=== PATIENT | female | born 1940 | race Caucasian/White ===

== ENCOUNTER 2021-06-16 13:52 | Emergency (ER) | payer MEDICARE, OTHER, SELFPAY ==
--- NOTE | 2021-06-16 14:40 | ECG_ITS ---
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 Measurements Intervals [place] Rate: 69 P: 52 OK: 166 QRS: 21 QRSD: 106 T: 29 QT: 444 QTc: 477 Interpretive Statements SINUS RHYTHM POSSIBLE ANTERIOR MYOCARDIAL INFARCTION , OF INDETERMINATE AGE [30 ms Q WAVE IN V3/V4, OR R < 0.2 mV IN V4] No previous ECG available for comparison Electronically Signed On 06-20-2021 13:07:54 CDT by Babak Dominguez M.D. [id number]
[2021-06-16 14:55] VITALS: BP 154/79; PULSE 73; RESP 18; TEMP 36.9; O2SAT 100; BMI 29.0
[2021-06-16 23:39] LABS: Basophils # 0.1 10^3/uL (0.0-0.1); Basophils % 0.8 %; Eosinophils # 1.9 10^3/uL (0.0-0.8); Eosinophils % 14.2 %; Hematocrit 42.1 % (37.0-47.0); Hemoglobin 13.9 g/dL (11.5-15.3); Lymphocytes # 3.9 10^3/uL (0.8-4.8); Lymphocytes % 29.8 %; Mean Corpuscular Volume 90.9 fl (81-99); Mean Platelet Volume 8.7 fL (7.4-10.4); Monocytes % 7.6 %; Neutrophils # 6.17 10^3/uL (1.8-7.7); Neutrophils % 47.3 %; Nucleated Red Blood Cells % 0 %; Platelet Count 331 10^3/cmm (130-400); Red Blood Count 4.63 10^6/uL (4.1-5.3)
[2021-06-17 00:03] LABS: Anion Gap 17.3 (5-19); Blood Urea Nitrogen 16 mg/dL (8-23); Calcium 9.6 mg/dL (8.5-10.5); Carbon Dioxide 27 mmol/L (22-29); Chloride 94 mmol/L (98-107); Glucose 81 mg/dL (65-115); Osmolality Calculated 280 mOsm/kg (285-295); Potassium 3.3 mmol/L (3.5-5.1); Sodium 135 mmol/L (136-145)
--- NOTE | 2021-06-17 00:42 | ECG_ITS ---
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 Measurements Intervals [place] Rate: 67 P: 7 VA: 152 QRS: 22 QRSD: 105 T: 29 QT: 451 QTc: 479 Interpretive Statements SINUS RHYTHM PROBABLE INFERIOR MYOCARDIAL INFARCTION , PROBABLY OLD [35 ms Q WAVE IN II/aVF] No previous ECG available for comparison Electronically Signed On 06-17-2021 17:09:09 CDT by Cassius Ventura M.D. [id number]
--- NOTE | 2021-06-17 00:42 | CTR_ITS ---
PROCEDURE INFORMATION: Exam: CT Head Without Contrast Exam date and time: 06/17/2021 12:42 AM Age: 80 years old Clinical indication: Dizziness; Additional info: Vertigo TECHNIQUE: Imaging protocol: Computed tomography of the head without contrast. Radiation optimization: All CT scans at this facility use at least one of these dose optimization techniques: automated exposure control; mA and/or kV adjustment per patient size (includes targeted exams where dose is matched to clinical indication); or iterative reconstruction. COMPARISON: No relevant prior studies available. RADIATION DOSE METRICS: Total DLP (mGy-cm): 789.97 FINDINGS: Brain: No acute intracranial hemorrhage or mass effect. There is decreased attenuation in the periventricular white matter, likely from microvascular disease. No definite acute infarct by CT. MRI could be more sensitive/specific for detection, as clinically directed. Cerebral ventricles: Ventricle size is normal for age. Paranasal sinuses: Prominent fluid/opacity in the sphenoid sinus. This could represent acute sinusitis, please correlate clinically. Mild mucosal thickening in the ethmoid sinuses. Included paranasal sinuses otherwise appear essentially clear. Mastoid air cells: No significant acute finding. Vasculature: Vascular calcifications in the internal carotid arteries. Bones/joints: No definite acute skull fracture. CT/CT head wo con* [id number] IMPRESSION: 1. No acute intracranial hemorrhage or mass effect. 2. Changes of microvascular disease. 3. No definite acute infarct by CT, see above. 4. Paranasal sinus findings as discussed above. 5. Other findings discussed above. Radiation Dose CTDIVOL = (mGy): DLP = 789.97 (mGy-cm)
[2021-06-17] MEDS: meclizine 25 mg tablet 50 MG PO (01:27)
[2021-06-17 01:30] VITALS: BP 184/69; PULSE 67; RESP 18; TEMP 36.5; O2SAT 100
--- NOTE | 2021-06-17 01:41 | W.ED.GENADLT ---
HPI - General Adult General: Chief complaint: General Medical Stated complaint: DIZZY, TOO HOT Time Seen by Provider: 06/17/21 00:32 Source: patient Mode of arrival: ambulatory Limitations: no limitations History of Present Illness: HPI narrative: 80-year-old female states she has a long history of vertigo. States that today she was out driving and walking and felt like she got overheated outside had an episode of dizziness and difficulty walking. States this lasted roughly 30 minutes she also felt sick to her stomach. States that the like her vertigo had in the past. She states that since then she is felt much improved over the last 8 to 10 hours. She denies any headache. States she is able to walk now. She denies any chest pain. Associated symptoms: Deny chest pain, dyspnea, nausea, rash or vomiting Review of Systems Const: Denies: fever(s), chills, body aches or change in appetite Eyes: Denies: blurry vision or eye discomfort ENMT: Denies: throat pain or dental pain Card: Denies: chest pain Resp: Denies: dyspnea GI: Denies: abdominal pain, nausea, vomiting or diarrhea : Denies: dysuria Musc: Denies: neck pain or back pain Skin/Breast: Denies: rash Neuro: Reports: difficulty walking and dizziness Psych: Denies: depression Tom/Lymph: Denies: easy bruising All/Imm: Denies: urticaria Physical Exam Const: COMMON NORMALS: no acute distress, patient oriented x3 and healthy appearing HENMT: COMMON NORMALS: normocephalic and atraumatic HEAD & SCALP: normocephalic and atraumatic Eye: COMMON NORMALS: Equal, round and reactive pupils present and EOMs intact bilaterally PUPIL: Yes Equal, round and reactive pupils present Neck/C-Spine: COMMON NORMALS: full ROM and supple Chest: COMMONS NORMALS: normal inspection of the chest and normal palpation of entire chest wall Resp: COMMON NORMALS: normal respiratory effort, No retractions, No use of accessory muscles and clear to auscultation bilaterally AUSCULTATION: clear to auscultation bilaterally Cardio: COMMON NORMALS: regular rate, regular rhythm and No murmurs present (Cardio) RATE: regular rate RHYTHM: regular rhythm GI: COMMON NORMALS: Normal to inspection, nondistended, normoactive bowel sounds present, Soft to palpation, non-tender and no masses PALPATION: Yes Soft to palpation Extremity: COMMON NORMALS: normal to inspection and full ROM Neuro: COMMON NORMALS: patient oriented x3, moves all extremities and no focal motor deficits CRANIAL NERVES: Yes CN normal except as noted COORDINATION/BALANCE: mybigg-zg-gizh test normal and tandem gait normal SPEECH: speech normal GAIT: Yes Normal gait present MOTOR EXAM: 5/5 motor strength present throughout COORDINATION: nihdmb-yu-grlz test normal and tandem gait normal Psych: COMMON NORMALS: mental status grossly normal, Normal thought process present and cooperative THOUGHT PROCESS: Normal thought process present Skin: COMMON NORMALS: no rashes or lesions noted and no wounds GENERAL SKIN EXAM: no rashes or lesions noted Course Vital Signs: Vital signs: Vital Signs Temperature 97.7 F 06/17/21 01:30 Pulse Rate 67 06/17/21 01:30 Respiratory Rate 18 06/17/21 01:30 Blood Pressure 184/69 06/17/21 01:30 Pulse Oximetry 100 06/17/21 01:30 MDM - General Adult MDM Narrative: Medical decision making narrative: Patient presents here with vertigo that is since improved. She had this chronically has no signs of acute stroke. Patient feels improved here and I feel she is stable for discharge. Will place on Antivert. She is to return if worsening and is to follow-up with PCP. Patient understands agrees to plan. Lab Data: Labs: Lab Results 06/16/21 06/16/21 Range/Units 23:21 23:21 WBC 13.0 H (4.0-10.0) 10^3/ uL RBC 4.63 (4.1-5.3) 10^6/u L Hgb 13.9 (11.5-15.3) g/dL Hct 42.1 (37.0-47.0) % MCV 90.9 (81-99) fl MCH 30.0 (28.0-34.0) pg MCHC 33.0 (30.0-36.0) g/dL RDW 13.0 (12.1-15.1) % Plt Count 331 (130-400) 10^3/c mm MPV 8.7 (7.4-10.4) fL Neut % (Auto) 47.3 % Lymph % (Auto) 29.8 % [place] % (Auto) 7.6 % Eos % (Auto) 14.2 % Baso % (Auto) 0.8 % Neut # (Auto) 6.17 (1.8-7.7) 10^3/u L Lymph # (Auto) 3.9 (0.8-4.8) 10^3/u L [place] # (Auto) 1.0 H (0.2-0.9) 10^3/u L Eos # (Auto) 1.9 H (0.0-0.8) 10^3/u L Baso # (Auto) 0.1 (0.0-0.1) 10^3/u L Nucleated RBC % (a uto) 0 % Nucleated RBCs # 0.0 /100WBC Sodium 135 L (136-145) mmol/L Potassium 3.3 L (3.5-5.1) mmol/L Chloride 94 L (98-107) mmol/L Carbon Dioxide 27 (22-29) mmol/L Anion Gap 17.3 (5-19) BUN 16 (8-23) mg/dL Creatinine 0.7 (0.5-0.9) mg/dL GFR Calculation Not Reportable Glucose 81 (65-115) mg/dL Calculated Osmolal ity 280 L (285-295) mOsm/k g Calcium 9.6 (8.5-10.5) mg/dL Imaging Data^: CT Head: Attestation: I personally reviewed and interpreted this imaging study as follows: Radiologist's impression: [address] [address] [address] Scan Report Signed Patient: Irma Lyn Unit #: [id number] : 1940 Age/Sex: 80 / F ADM Date: 06/16/21 Loc: ER Room/Bed: Attending Dr: Ordering Provider/Ordering MD: Merrick Keenan MD Date of Service: 06/17/21 Procedure(s): CT head wo con* [id number] Accession Number(s): [id number] Report Number: [id number] PROCEDURE INFORMATION: Exam: CT Head Without Contrast Exam date and time: 06/17/2021 12:42 AM Age: 80 years old Clinical indication: Dizziness; Additional info: Vertigo TECHNIQUE: Imaging protocol: Computed tomography of the head without contrast. Radiation optimization: All CT scans at this facility use at least one of these dose optimization techniques: automated exposure control; mA and/or kV adjustment per patient size (includes targeted exams where dose is matched to clinical indication); or iterative reconstruction. COMPARISON: No relevant prior studies available. RADIATION DOSE METRICS: Total DLP (mGy-cm): 789.97 FINDINGS: Brain: No acute intracranial hemorrhage or mass effect. There is decreased attenuation in the periventricular white matter, likely from microvascular disease. No definite acute infarct by CT. MRI could be more sensitive/specific for detection, as clinically directed. Cerebral ventricles: Ventricle size is normal for age. Paranasal sinuses: Prominent fluid/opacity in the sphenoid sinus. This could represent acute sinusitis, please correlate clinically. Mild mucosal thickening in the ethmoid sinuses. Included paranasal sinuses otherwise appear essentially clear. Mastoid air cells: No significant acute finding. Vasculature: Vascular calcifications in the internal carotid arteries. Bones/joints: No definite acute skull fracture. CT/CT head wo con* [id number] IMPRESSION: 1. No acute intracranial hemorrhage or mass effect. 2. Changes of microvascular disease. 3. No definite acute infarct by CT, see above. 4. Paranasal sinus findings as discussed above. 5. Other findings discussed above. Radiation Dose CTDIVOL = (mGy): DLP = 789.97 (mGy-cm) Dictated By: Marquez Garcia MD Signed By: Marquez Garcia MD Signed Date/Time: 06/17/21245 DD/ 3 EKG Data^: EKG 1: Attestation: I personally reviewed and interpreted this EKG as follows: EKG interpretation date: 06/17/21 EKG interpretation time: 02:03 Interpretation: nsr hr [address] or twave abonrmalities qrs 105 qtc 467 Computer generated interpretation: Head CT 06/17/21 00:42 IMPRESSION: 1. No acute intracranial hemorrhage or mass effect. 2. Changes of microvascular disease. 3. No definite acute infarct by CT, see above. 4. Paranasal sinus findings as discussed above. 5. Other findings discussed above. Radiation Dose CTDIVOL = (mGy): DLP = 789.97 (mGy-cm) Discharge Plan Discharge Patient Disposition: Home Clinical Impression: Vertigo Condition: Stable Prescriptions: New meclizine 25 mg tablet 25 mg PO TID PRN (Reason: vertigo) Qty: 20 RF: 0 Discharge Orders: Discharge ED (Routine); Ordered 06/17/21 Ordered By: Merrick Keenan Referrals: Kvng Daniel MD [Primary Care Provider] - 1-3 days Discharge Diet: Advance as tolerated Discharge Activity: Resume usual activity Patient Instructions: Vertigo (ED) Coding Level of Care Code ED E Commerce Marketing Analyst for Chg Fwd Exam Comprehensive
== END 2021-06-17 03:36 | disposition home or self-care (01) ==
PROVIDERS: Emergency Medicine; Emergency Provider Emergency Medicine; PCP Family Medicine
DX: R42 Dizziness and giddiness (principal)
CPT/HCPCS: 36415; 70450; 80048; 85025; 93005; 99283; J8597

== ENCOUNTER 2022-09-29 11:20 | Outpatient (RCR) | payer MEDICARE, OTHER, SELFPAY | END 2022-10-14 16:42 | disposition home or self-care (01) | LOC: SPT 11:20 | PROVIDERS: PCP Family Medicine; Visit Provider Family Medicine | DX: M25.511 Pain in right shoulder (principal); R29.6 Repeated falls | CPT/HCPCS: 97110; 97161; 97530 ==

== ENCOUNTER → 2022-12-07 13:49 | Outpatient (BNVA) | payer MEDICARE, OTHER, SELFPAY | PROVIDERS: PCP Family Medicine; Visit Provider Podiatrist Foot & Ankle Surgery | DX: L97.522 Non-pressure chronic ulcer of other part of left foot with fat layer exposed (principal); R60.9 Edema, unspecified | CPT/HCPCS: 99203 ==

== ENCOUNTER → 2022-12-21 15:15 | Outpatient (BNVA) | payer MEDICARE, OTHER, SELFPAY | PROVIDERS: PCP Family Medicine; Visit Provider Podiatrist Foot & Ankle Surgery | DX: L97.522 Non-pressure chronic ulcer of other part of left foot with fat layer exposed (principal); R60.9 Edema, unspecified | CPT/HCPCS: 11042 ==

== ENCOUNTER → 2023-01-04 15:44 | Outpatient (BNVA) | payer MEDICARE, OTHER, SELFPAY | PROVIDERS: PCP Family Medicine; Visit Provider Podiatrist Foot & Ankle Surgery | DX: L97.529 Non-pressure chronic ulcer of other part of left foot with unspecified severity (principal); R60.9 Edema, unspecified | CPT/HCPCS: 99213 ==

== ENCOUNTER → 2023-01-18 15:08 | Outpatient (BNVA) | payer MEDICARE, OTHER, SELFPAY | PROVIDERS: PCP Family Medicine; Visit Provider Podiatrist Foot & Ankle Surgery | DX: L97.522 Non-pressure chronic ulcer of other part of left foot with fat layer exposed (principal); R60.9 Edema, unspecified | CPT/HCPCS: 99213 ==

== ENCOUNTER 2023-01-23 10:00 | Emergency (ER) | payer MEDICARE, OTHER, SELFPAY ==
[2023-01-23 10:18] VITALS: BP 179/64; PULSE 57; RESP 14; TEMP 36.7; O2SAT 98; BMI 27.4
--- NOTE | 2023-01-23 10:35 | W.ED.SKABFB ---
HPI - Skin/Abscess/Foreign Bdy General: Chief complaint: Abdominal Pain Stated complaint: blood coming from belly button Time Seen by Provider: 01/23/23 10:16 Source: patient Mode of arrival: ambulatory Limitations: no limitations History of Present Illness: Patient is a nice 82-year-old female presents to ED today with complaint of drainage from her umbilicus. Patient states she began noticing a small amount of clear drainage yesterday but states that she woke up this morning the drainage was a bit darker and had a blood-tinged to it which made her concerned. She is not having any abdominal pain. No itching to her umbilicus. She denies any recent sores/scabs. Denies previous abdominal incisions to her umbilicus. No masses/bulges. MD complaint: other (drainage from umbilicus) Onset (ago): day(s) Tetanus up to date: yes Severity: mild Relieving factors: none Exacerbating factors: none Context: none Associated symptoms: Reports no associated symptoms; Deny fever(s), nausea or vomiting Treatments prior to arrival: none Review of Systems Const: Denies: fever(s) GI: Denies: abdominal pain, nausea, vomiting or change in bowel habits Skin/Breast: Reports: other (drainage from navel) [facility] ED PFSH: Medical History Hyperlipidemia Hypertension Surgical History No pertinent past surgical history Physical Exam Const: COMMON NORMALS: no acute distress, average body habitus, patient oriented x3, no limitations, alert and well nourished GI: COMMON NORMALS: Normal to inspection, nondistended, normoactive bowel sounds present, Soft to palpation, non-tender, No hepatosplenomegaly present and no masses INSPECTION: Yes normal to inspection AUSCULTATION: Yes normoactive bowel sounds PALPATION: Yes Soft to palpation, No Tenderness to palpation present (GI), No Guarding due to palpation present (GI), No Rigid due to palpation and Yes No hepatosplenomegaly present OTHER: patient's naval is roofed/concealed at the left and right edges by skin folds that are rubbing together creating a mild intertrigo with scant bloody serosanguineous weeping Neuro: COMMON NORMALS: patient oriented x3 SENSORIUM/ORIENTATION: Yes alert Course Vital Signs: Vital signs: Vital Signs Temperature 98.0 F 01/23/23 10:18 Pulse Rate 57 L 01/23/23 10:18 Respiratory Rate 14 01/23/23 10:18 Blood Pressure 179/64 01/23/23 10:18 Pulse Oximetry 98 01/23/23 10:18 Oxygen Delivery Me thod 01/23/23 10:18 MDM - Skin/Abscess/Foreign Bdy Medicial Decision Making Patient has some minor skin irritation from chafing skin edges creating a mild intertrigo. She was encouraged to keep area clean/dry with drying powders and barrier creams. She can follow up with PCP in the next 1-2 weeks if symptoms worsen or fail to improve. Discharge Plan Discharge Patient Disposition: Home Clinical Impression: Intertrigo Condition: Stable Prescriptions: No Action lidocaine-epinephrine (PF) 2 %-1:200,000 solution 3 ml SUBCUT ONCE Qty: 20 0RF enalapril maleate 10 mg tablet 10 mg PO BID alendronate 70 mg tablet PO citalopram 20 mg tablet 10 mg PO DAILY potassium chloride 10 mEq capsule, extended release 10 meq PO DAILY hydrochlorothiazide 50 mg tablet 50 mg PO DAILY celecoxib [Celebrex] 200 mg capsule 200 mg PO DAILY simvastatin 40 mg tablet 40 mg PO DAILY Myrbetriq 50 mg tablet extended release 24 hr 50 mg PO DAILY betamethasone dipropionate 0.05 % cream 1 applic topical BID PRN triamcinolone acetonide 0.1 % ointment 1 applic topical BID Qty: 454 0RF Rx Instructions: Apply to affected area no more than two weeks per month. Not for face. cephalexin 500 mg capsule 500 mg PO TID Qty: 21 0RF mupirocin 2 % ointment 1 applic topical BID Qty: 15 0RF MediHoney (honey) 80 % gel 1 applic topical DAILY Qty: 44 0RF meclizine 25 mg tablet 25 mg PO TID PRN (Reason: vertigo) Qty: 20 0RF Discharge Orders: Discharge ED (Routine); Ordered 01/23/23 Ordered By: Zara Villalobos Referrals: Kvng Daniel MD [Primary Care Provider] - Activity Restrictions/Additional Instructions: Daily cleansing of intertriginous skin with a mild cleanser followed by drying of affected area with a hair spinning machine operator on a cool setting ?Aeration of affected area when feasible ?Daily application of drying powders, such as powders composed of microporous cellulose ?Use of absorbent material or clothing, such as cotton to separate skin in folds ?Application of barrier creams in areas-such as zinc oxide Coding Level of Care Code ED Philosophy Instructor for Terry Posey
== END 2023-01-23 10:48 | disposition home or self-care (01) ==
PROVIDERS: Emergency Provider Physician Assistant; PCP Family Medicine
DX: L30.4 Erythema intertrigo (principal); I10 Essential (primary) hypertension; E78.5 Hyperlipidemia, unspecified
CPT/HCPCS: 99282

== ENCOUNTER → 2023-01-29 14:07 | Outpatient (BNVA) | payer MEDICARE, OTHER, SELFPAY | PROVIDERS: PCP Family Medicine; Visit Provider Podiatrist Foot & Ankle Surgery | DX: L97.522 Non-pressure chronic ulcer of other part of left foot with fat layer exposed (principal); R60.9 Edema, unspecified | CPT/HCPCS: 99213 ==

== ENCOUNTER → 2023-02-05 08:14 | Outpatient (BNVA) | payer MEDICARE, OTHER, SELFPAY | PROVIDERS: PCP Family Medicine; Visit Provider Podiatrist Foot & Ankle Surgery | DX: L97.522 Non-pressure chronic ulcer of other part of left foot with fat layer exposed (principal); R60.9 Edema, unspecified | CPT/HCPCS: 11042 ==

== ENCOUNTER → 2023-02-19 08:47 | Outpatient (BNVA) | payer MEDICARE, OTHER, SELFPAY | PROVIDERS: PCP Family Medicine; Visit Provider Podiatrist Foot & Ankle Surgery | DX: L97.522 Non-pressure chronic ulcer of other part of left foot with fat layer exposed (principal); R60.9 Edema, unspecified | CPT/HCPCS: 99213 ==

== ENCOUNTER → 2023-03-03 11:07 | Outpatient (BNVA) | payer MEDICARE, OTHER, SELFPAY | PROVIDERS: PCP Family Medicine; Visit Provider Podiatrist Foot & Ankle Surgery | DX: L97.522 Non-pressure chronic ulcer of other part of left foot with fat layer exposed (principal); R60.9 Edema, unspecified | CPT/HCPCS: 99213 ==

== ENCOUNTER → 2023-03-24 09:56 | Outpatient (BNVA) | payer MEDICARE, OTHER, SELFPAY | PROVIDERS: PCP Family Medicine; Visit Provider Podiatrist Foot & Ankle Surgery | DX: L89.892 Pressure ulcer of other site, stage 2 (principal); M20.12 Hallux valgus (acquired), left foot | CPT/HCPCS: 99213 ==

== ENCOUNTER → 2023-04-07 15:30 | Outpatient (BNVA) | payer MEDICARE, OTHER, SELFPAY | PROVIDERS: PCP Family Medicine; Visit Provider Dermatology | DX: L30.9 Dermatitis, unspecified (principal); L82.1 Other seborrheic keratosis; L81.4 Other melanin hyperpigmentation; Z85.828 Personal history of other malignant neoplasm of skin | CPT/HCPCS: 99214 ==

== ENCOUNTER → 2023-04-15 10:09 | Outpatient (BNVA) | payer MEDICARE, OTHER, SELFPAY | PROVIDERS: PCP Family Medicine; Visit Provider Podiatrist Foot & Ankle Surgery | DX: M20.12 Hallux valgus (acquired), left foot (principal); L97.522 Non-pressure chronic ulcer of other part of left foot with fat layer exposed | CPT/HCPCS: 99213 ==

== ENCOUNTER → 2023-05-05 09:23 | Outpatient (BNVA) | payer MEDICARE, OTHER, SELFPAY | PROVIDERS: PCP Family Medicine; Visit Provider Dermatology | DX: L30.8 Other specified dermatitis (principal); Z85.828 Personal history of other malignant neoplasm of skin | CPT/HCPCS: 99214 ==

== ENCOUNTER → 2023-06-15 08:58 | Outpatient (BNVA) | payer MEDICARE, OTHER, SELFPAY | PROVIDERS: PCP Family Medicine; Visit Provider Podiatrist Foot & Ankle Surgery | DX: L89.899 Pressure ulcer of other site, unspecified stage; M20.12 Hallux valgus (acquired), left foot | CPT/HCPCS: 99213 ==

== ENCOUNTER 2023-06-18 03:13 | Emergency (ER) | payer MEDICARE, OTHER, MEDICAID, SELFPAY ==
[2023-06-18] VITALS (10 sets, daily range): BP systolic 141–199; BP diastolic 47–98; PULSE 61–81; RESP 16–18; TEMP 36.9; O2SAT 93–99; BMI 26.5
--- NOTE | 2023-06-18 03:24 | ED_ITS ---
Documented by User: Mendoza Jacobs MD 06/18/23 03:28 HPI - Abdominal Pain General: Chief Complaint: Abdominal Pain Stated Complaint: Constipated\Vomiting Time Seen by Provider: 06/18/23 03:16 Source: patient Mode of arrival: ambulatory Limitations: no limitations History of Present Illness: 82-year-old female states she has been having abdominal pain over the last 2 days states she has had nausea and vomiting as well states she has not had a bowel movement in 4 to 5 days. She denies any fevers she rates her pain a 5 out of 10 currently denies any worsening proving factors. Associated Symptoms: Reports constipation, nausea and vomiting; Denies chills, diarrhea, dysuria and fever(s) Review of Systems Const: Denies: fever(s), chills, body aches or change in appetite ENMT: Denies: throat pain or dental pain Card: Denies: chest pain Resp: Denies: dyspnea GI: Reports: abdominal pain, nausea, vomiting and constipation; Denies: diarrhea : Denies: dysuria Musc: Denies: neck pain or back pain Skin/Breast: Denies: rash Neuro: Denies: headache(s) PFS ED PFSH: Medical History Hyperlipidemia Hypertension Surgical History No pertinent past surgical history Physical Exam Const: COMMON NORMALS: no acute distress, patient oriented x3 and healthy appearing HENMT: COMMON NORMALS: normocephalic and atraumatic HEAD & SCALP: normocephalic and atraumatic Neck/C-Spine: COMMON NORMALS: full ROM and supple Chest: COMMONS NORMALS: normal inspection of the chest and normal palpation of entire chest wall Resp: COMMON NORMALS: normal respiratory effort, No retractions, No use of accessory muscles and clear to auscultation bilaterally AUSCULTATION: clear to auscultation bilaterally Cardio: COMMON NORMALS: regular rate, regular rhythm and No murmurs present (Cardio) RATE: regular rate RHYTHM: regular rhythm GI: COMMON NORMALS: no masses OTHER: diffuse mild tenderness Extremity: COMMON NORMALS: normal to inspection and full ROM Neuro: COMMON NORMALS: patient oriented x3, moves all extremities and no focal motor deficits Psych: COMMON NORMALS: mental status grossly normal, Normal thought process present and cooperative THOUGHT PROCESS: Normal thought process present Skin: COMMON NORMALS: no rashes or lesions noted and no wounds GENERAL SKIN EXAM: no rashes or lesions noted Course Vital Signs: Vital signs: Vital Signs Temperature 98.5 F 06/18/23 03:17 Pulse Rate 61 06/18/23 12:35 Respiratory Rate 18 06/18/23 12:35 Blood Pressure 142/47 06/18/23 12:35 Pulse Oximetry 97 06/18/23 12:35 Oxygen Delivery Me thod Room Air 06/18/23 12:35 MDM - Abdominal Pain Lab Data 06/18/23 03:31 06/18/23 03:31 Labs/Radiology: Radiology Impressions Abdomen/Pelvis CT 06/18/23 04:31 IMPRESSION: 1. High-grade small-bowel obstruction. Transition point in the left lower quadrant. 2. At the transition point in the small bowel there is mesenteric architectural distortion suggesting internal hernia. 3. The sigmoid apex may also be involved in the internal hernia. There is focal decompression of the closely apposed portions of sigmoid colon proximal and distal to the sigmoid apex adjacent to the small bowel transition point. There is no high-grade colonic obstruction. 4. Large ventral hernia containing portions of dilated and nondilated small bowel, and most of the transverse colon. The small bowel in the hernia is incompletely imaged. Small bowel transition point is intra-abdominal. 5. Incidental findings above. ADDENDUM: 06/18/23 4568 THIS REPORT CONTAINS FINDINGS THAT MAY BE CRITICAL TO PATIENT CARE. The findings were verbally communicated via telephone conference with MENDOZA JACOBS at 5:30 AM CDT on 06/18/2023. The findings were acknowledged and understood. ADDENDUM: 06/18/23 0700 An additional set of axial, coronal and sagittal images were obtained through the distal aspect of ventral hernia site. No new findings. Laboratory Results WBC 10.68 10^3/uL (3.29-11.43) 06/18/23 03:31 RBC 4.51 10^6/uL (3.85-5.65) 06/18/23 03:31 Hgb 13.70 g/dL (11.27-16.99) 06/18/23 03:31 Hct 40.7 % (36-47) 06/18/23 03:31 MCV 90.2 fl (85-98) 06/18/23 03:31 MCH 30.4 pg (27-33) 06/18/23 03:31 MCHC 33.7 g/dL (30-55) 06/18/23 03:31 RDW 13.5 % (12.1-15.1) 06/18/23 03:31 Plt Count 306 10^3/cmm (157-399) 06/18/23 03:31 MPV 8.7 fL (7.4-10.4) 06/18/23 03:31 Neut % (Auto) 74.2 % 06/18/23 03:31 Lymph % (Auto) 17.0 % 06/18/23 03:31 Milam % (Auto) 5.4 % 06/18/23 03:31 Eos % (Auto) 2.5 % 06/18/23 03:31 Baso % (Auto) 0.7 % 06/18/23 03:31 Neut # (Auto) 7.91 10^3/uL (1.8-7.7) H 06/18/23 03:31 Lymph # (Auto) 1.8 10^3/uL (0.8-4.8) 06/18/23 03:31 Milam # (Auto) 0.6 10^3/uL (0.2-0.9) 06/18/23 03:31 Eos # (Auto) 0.3 10^3/uL (0.0-0.8) 06/18/23 03:31 Baso # (Auto) 0.1 10^3/uL (0.0-0.1) 06/18/23 03:31 Nucleated RBC % (auto) 0 % 06/18/23 03:31 Nucleated RBCs # 0.0 /100WBC 06/18/23 03:31 Sodium 138 mmol/L (136-145) 06/18/23 03:31 Potassium 3.8 mmol/L (3.5-5.1) 06/18/23 03:31 Chloride 98 mmol/L (98-107) 06/18/23 03:31 Carbon Dioxide 24 mmol/L (22-29) 06/18/23 03:31 Anion Gap 19.8 (5-19) H 06/18/23 03:31 BUN 23 mg/dL (8-23) 06/18/23 03:31 Creatinine 1.0 mg/dL (0.5-0.9) H 06/18/23 03:31 GFR Calculation Not Reportable 06/18/23 03:31 Glucose 131 mg/dL (65-115) H 06/18/23 03:31 Calculated Osmolality 291 mOsm/kg (285-295) 06/18/23 03:31 Lactic Acid 2.0 mmol/L (0.5-2.2) 06/18/23 03:30 Calcium 10.0 mg/dL (8.5-10.5) 06/18/23 03:31 Total Bilirubin 0.9 mg/dL (0.15-1.2) 06/18/23 03:31 AST 23 U/L (0-32) 06/18/23 03:31 ALT 11 U/L (0-33) 06/18/23 03:31 Alkaline Phosphatase 64 U/L (35-105) 06/18/23 03:31 Total Protein 7.8 g/dL (6.6-8.7) 06/18/23 03:31 Albumin 4.6 g/dL (3.5-5.2) 06/18/23 03:31 Globulin 3.2 g/dL (1.3-4.6) 06/18/23 03:31 Lipase 34 U/L (13-60) 06/18/23 03:31 Urine Color Yellow (Yellow) 06/18/23 03:53 Urine Appearance Clear (CLEAR) 06/18/23 03:53 Urine pH 7 (5-7) 06/18/23 03:53 Ur Specific Strawn 1.010 (1.005-1.030) 06/18/23 03:53 Urine Protein 1+ (Negative) H 06/18/23 03:53 Urine Glucose (UA) Norm (Normal) 06/18/23 03:53 Urine Ketones 1+ (Negative) H 06/18/23 03:53 Urine Blood Neg (Negative) 06/18/23 03:53 Urine Nitrate Negative (Negative) 06/18/23 03:53 Urine Bilirubin Neg (Negative) 06/18/23 03:53 Urine Urobilinogen 1 mg/dL (Negative) H 06/18/23 03:53 Ur Leukocyte Esterase 2+ (Negative) H 06/18/23 03:53 Urine RBC None /hpf (0-2) 06/18/23 03:53 Urine WBC 5-10 /hpf (0-5) H 06/18/23 03:53 Ur Squamous Epith Cells 0-4 /hpf (0-5) H 06/18/23 03:53 Amorphous Sediment Not Reportable 06/18/23 03:53 Urine Bacteria 1+ /hpf (NONE) H 06/18/23 03:53 Urine Mucus 2+ /hpf 06/18/23 03:53 Discharge Plan Discharge Patient Disposition: Xfer Short-Term Hosp Clinical Impression: Small bowel obstruction, Ventral hernia Condition: Stable Prescriptions: No Action enalapril maleate 10 mg tablet 10 mg PO BID alendronate 70 mg tablet 70 mg PO Q7D citalopram 20 mg tablet 10 mg PO DAILY potassium chloride 10 mEq capsule, extended release 10 meq PO DAILY hydrochlorothiazide 50 mg tablet 50 mg PO DAILY celecoxib [Celebrex] 200 mg capsule 200 mg PO DAILY simvastatin 40 mg tablet 40 mg PO DAILY Myrbetriq 50 mg tablet extended release 24 hr 50 mg PO DAILY betamethasone dipropionate 0.05 % cream 1 applic topical BID PRN (Reason: Rash) triamcinolone acetonide 0.1 % ointment 1 applic topical BID Qty: 454 0RF Rx Instructions: Apply to affected area no more than two weeks per month. Not for face. (DME) Toe Alignment Splint See Rx Instructions .Route .MEDSUPPLY Qty: 1 0RF Rx Instructions: As directed mupirocin 2 % ointment 1 applic topical BID Qty: 15 0RF MediHoney (honey) 80 % gel 1 applic topical DAILY Qty: 44 0RF meclizine 25 mg tablet 25 mg PO TID PRN (Reason: vertigo) Qty: 20 0RF Referrals: Kvng Daniel MD [Primary Care Provider] - Sign Out Sign Out Data: Patient Sign Out occurred on 06/18/23 at 05:59. Patient's care was discussed, and care was transferred from to Husam Otto DO. Coding Level of Care Code ED In School Suspension Coordinator for [facility] Documented by User: Husam Otto DO 06/18/23 16:25 HPI - Abdominal Pain General: Chief Complaint: Abdominal Pain Stated Complaint: Constipated\Vomiting Time Seen by Provider: 06/18/23 03:16 PFSH ED PFSH: Medical History Hyperlipidemia Hypertension Surgical History No pertinent past surgical history Course Vital Signs: Vital signs: Vital Signs Temperature 98.5 F 06/18/23 03:17 Pulse Rate 61 06/18/23 12:35 Respiratory Rate 18 06/18/23 12:35 Blood Pressure 142/47 06/18/23 12:35 Pulse Oximetry 97 06/18/23 12:35 Oxygen Delivery Me thod Room Air 06/18/23 12:35 MDM - Abdominal Pain Medical Decision Making Care assumed at change of shift. We asked Dr. Contreras to see the patient he seen the patient and documented a consultation. He requested to transfer the patient he feels that closing the abdominal cavity was a sizable ventral wall defect with he would not be able to do and we do not have the proper equipment in the OR to manage this. We contacted [facility] for the patient was seen several ye ars ago for the colon resection they will accept on transfer. NG was placed. Medical Records I reviewed the patient's medical records. Lab Data I reviewed the patient's lab results. 06/18/23 03:31 06/18/23 03:31 Labs/Radiology: Radiology Impressions Abdomen/Pelvis CT 06/18/23 04:31 IMPRESSION: 1. High-grade small-bowel obstruction. Transition point in the left lower quadrant. 2. At the transition point in the small bowel there is mesenteric architectural distortion suggesting internal hernia. 3. The sigmoid apex may also be involved in the internal hernia. There is focal decompression of the closely apposed portions of sigmoid colon proximal and distal to the sigmoid apex adjacent to the small bowel transition point. There is no high-grade colonic obstruction. 4. Large ventral hernia containing portions of dilated and nondilated small bowel, and most of the transverse colon. The small bowel in the hernia is incompletely imaged. Small bowel transition point is intra-abdominal. 5. Incidental findings above. ADDENDUM: 06/18/23 0592 THIS REPORT CONTAINS FINDINGS THAT MAY BE CRITICAL TO PATIENT CARE. The findings were verbally communicated via telephone conference with MENDOZA JACOBS at 5:30 AM CDT on 06/18/2023. The findings were acknowledged and understood. ADDENDUM: 06/18/23 0700 An additional set of axial, coronal and sagittal images were obtained through the distal aspect of ventral hernia site. No new findings. Laboratory Results WBC 10.68 10^3/uL (3.29-11.43) 06/18/23 03:31 RBC 4.51 10^6/uL (3.85-5.65) 06/18/23 03:31 Hgb 13.70 g/dL (11.27-16.99) 06/18/23 03:31 Hct 40.7 % (36-47) 06/18/23 03:31 MCV 90.2 fl (85-98) 06/18/23 03:31 MCH 30.4 pg (27-33) 06/18/23 03:31 MCHC 33.7 g/dL (30-55) 06/18/23 03:31 RDW 13.5 % (12.1-15.1) 06/18/23 03:31 Plt Count 306 10^3/cmm (157-399) 06/18/23 03:31 MPV 8.7 fL (7.4-10.4) 06/18/23 03:31 Neut % (Auto) 74.2 % 06/18/23 03:31 Lymph % (Auto) 17.0 % 06/18/23 03:31 Milam % (Auto) 5.4 % 06/18/23 03:31 Eos % (Auto) 2.5 % 06/18/23 03:31 Baso % (Auto) 0.7 % 06/18/23 03:31 Neut # (Auto) 7.91 10^3/uL (1.8-7.7) H 06/18/23 03:31 Lymph # (Auto) 1.8 10^3/uL (0.8-4.8) 06/18/23 03:31 Milam # (Auto) 0.6 10^3/uL (0.2-0.9) 06/18/23 03:31 Eos # (Auto) 0.3 10^3/uL (0.0-0.8) 06/18/23 03:31 Baso # (Auto) 0.1 10^3/uL (0.0-0.1) 06/18/23 03:31 Nucleated RBC % (auto) 0 % 06/18/23 03:31 Nucleated RBCs # 0.0 /100WBC 06/18/23 03:31 Sodium 138 mmol/L (136-145) 06/18/23 03:31 Potassium 3.8 mmol/L (3.5-5.1) 06/18/23 03:31 Chloride 98 mmol/L (98-107) 06/18/23 03:31 Carbon Dioxide 24 mmol/L (22-29) 06/18/23 03:31 Anion Gap 19.8 (5-19) H 06/18/23 03:31 BUN 23 mg/dL (8-23) 06/18/23 03:31 Creatinine 1.0 mg/dL (0.5-0.9) H 06/18/23 03:31 GFR Calculation Not Reportable 06/18/23 03:31 Glucose 131 mg/dL (65-115) H 06/18/23 03:31 Calculated Osmolality 291 mOsm/kg (285-295) 06/18/23 03:31 Lactic Acid 2.0 mmol/L (0.5-2.2) 06/18/23 03:30 Calcium 10.0 mg/dL (8.5-10.5) 06/18/23 03:31 Total Bilirubin 0.9 mg/dL (0.15-1.2) 06/18/23 03:31 AST 23 U/L (0-32) 06/18/23 03:31 ALT 11 U/L (0-33) 06/18/23 03:31 Alkaline Phosphatase 64 U/L (35-105) 06/18/23 03:31 Total Protein 7.8 g/dL (6.6-8.7) 06/18/23 03:31 Albumin 4.6 g/dL (3.5-5.2) 06/18/23 03:31 Globulin 3.2 g/dL (1.3-4.6) 06/18/23 03:31 Lipase 34 U/L (13-60) 06/18/23 03:31 Urine Color Yellow (Yellow) 06/18/23 03:53 Urine Appearance Clear (CLEAR) 06/18/23 03:53 Urine pH 7 (5-7) 06/18/23 03:53 Ur Specific Strawn 1.010 (1.005-1.030) 06/18/23 03:53 Urine Protein 1+ (Negative) H 06/18/23 03:53 Urine Glucose (UA) Norm (Normal) 06/18/23 03:53 Urine Ketones 1+ (Negative) H 06/18/23 03:53 Urine Blood Neg (Negative) 06/18/23 03:53 Urine Nitrate Negative (Negative) 06/18/23 03:53 Urine Bilirubin Neg (Negative) 06/18/23 03:53 Urine Urobilinogen 1 mg/dL (Negative) H 06/18/23 03:53 Ur Leukocyte Esterase 2+ (Negative) H 06/18/23 03:53 Urine RBC None /hpf (0-2) 06/18/23 03:53 Urine WBC 5-10 /hpf (0-5) H 06/18/23 03:53 Ur Squamous Epith Cells 0-4 /hpf (0-5) H 06/18/23 03:53 Amorphous Sediment Not Reportable 06/18/23 03:53 Urine Bacteria 1+ /hpf (NONE) H 06/18/23 03:53 Urine Mucus 2+ /hpf 06/18/23 03:53 Discharge Plan Discharge Patient Disposition: Xfer Short-Term Hosp Clinical Impression: Small bowel obstruction, Ventral hernia Condition: Stable Prescriptions: No Action enalapril maleate 10 mg tablet 10 mg PO BID alendronate 70 mg tablet 70 mg PO Q7D citalopram 20 mg tablet 10 mg PO DAILY potassium chloride 10 mEq capsule, extended release 10 meq PO DAILY hydrochlorothiazide 50 mg tablet 50 mg PO DAILY celecoxib [Celebrex] 200 mg capsule 200 mg PO DAILY simvastatin 40 mg tablet 40 mg PO DAILY Myrbetriq 50 mg tablet extended release 24 hr 50 mg PO DAILY betamethasone dipropionate 0.05 % cream 1 applic topical BID PRN (Reason: Rash) triamcinolone acetonide 0.1 % ointment 1 applic topical BID Qty: 454 0RF Rx Instructions: Apply to affected area no more than two weeks per month. Not for face. (DME) Toe Alignment Splint See Rx Instructions .Route .MEDSUPPLY Qty: 1 0RF Rx Instructions: As directed mupirocin 2 % ointment 1 applic topical BID Qty: 15 0RF MediHoney (honey) 80 % gel 1 applic topical DAILY Qty: 44 0RF meclizine 25 mg tablet 25 mg PO TID PRN (Reason: vertigo) Qty: 20 0RF Referrals: Kvng Daniel MD [Primary Care Provider] - Sign Out Sign Out Data: Patient Sign Out occurred on 06/18/23 at 05:59. Patient's care was discussed, and care was transferred from to Husam Otto DO. Coding Level of Care Code ED In School Suspension Coordinator for Terry Posey
[2023-06-18 03:35] LABS: Basophils # 0.1 10^3/uL (0.0-0.1); Basophils % 0.7 %; Eosinophils # 0.3 10^3/uL (0.0-0.8); Eosinophils % 2.5 %; Hematocrit 40.7 % (36-47); Lymphocytes # 1.8 10^3/uL (0.8-4.8); Mean Corpuscular HGB Conc 33.7 g/dL (30-55); Mean Corpuscular Hemoglobin 30.4 pg (27-33); Mean Corpuscular Volume 90.2 fl (85-98); Mean Platelet Volume 8.7 fL (7.4-10.4); Monocytes # 0.6 10^3/uL (0.2-0.9); Monocytes % 5.4 %; Neutrophils # 7.91 10^3/uL (1.8-7.7); Neutrophils % 74.2 %; Nucleated Red Blood Cells % 0 %; Platelet Count 306 10^3/cmm (157-399); Red Blood Count 4.51 10^6/uL (3.85-5.65); Red Cell Distribution Width 13.5 % (12.1-15.1); White Blood Count 10.68 10^3/uL (3.29-11.43)
[2023-06-18] MEDS: ondansetron 2 mg/ML SDV 2 mL 4 MG IVP (03:36)
[2023-06-18 03:52] LABS: Alanine Aminotransferase 11 U/L (0-33); Albumin Level 4.6 g/dL (3.5-5.2); Alkaline Phosphatase 64 U/L (35-105); Anion Gap 19.8 (5-19); Aspartate Amino Transferase 23 U/L (0-32); Blood Urea Nitrogen 23 mg/dL (8-23); Carbon Dioxide 24 mmol/L (22-29); Chloride 98 mmol/L (98-107); Globulin 3.2 g/dL (1.3-4.6); Glucose 131 mg/dL (65-115); Lipase 34 U/L (13-60); Osmolality Calculated 291 mOsm/kg (285-295); Potassium 3.8 mmol/L (3.5-5.1); Sodium 138 mmol/L (136-145); Total Bilirubin 0.9 mg/dL (0.15-1.2); Total Protein 7.8 g/dL (6.6-8.7)
[2023-06-18 04:05] LABS: Blood Urine Neg (Negative); Glucose Urine UA Norm (Normal); Ketones Urine 1+ (Negative); Nitrate Urine Negative (Negative); Protein Urine 1+ (Negative); Urine Appearance Clear (CLEAR); Urine Color Yellow (Yellow); pH Urine 7 (5-7)
[2023-06-18 04:06] LABS: Add Urine Culture? No; Add Urine Microscopic? YES; Bacteria Urine 1+ /hpf; Bilirubin Urine Neg (Negative); Leukocyte Esterase Urine 2+ (Negative); Mucus Urine 2+ /hpf; Squamous Epithelial Cell Urine 0-4 /hpf (0-5); Urobilinogen Urine 1 mg/dL (Negative)
--- NOTE | 2023-06-18 04:31 | CTR_ITS ---
PROCEDURE INFORMATION: Exam: CT Abdomen And Pelvis With Contrast Exam date and time: 06/18/2023 4:38 AM Age: 82 years old Clinical indication: Constipation and nausea and vomiting; Prior surgery; Surgery date: 6+ months; Surgery type: Colon resection. Ventral hernia repair; Patient HX: Constipation with n/v x 3 days. History of colon cancer. ; Additional info: Abd pain TECHNIQUE: Imaging protocol: Computed tomography of the abdomen and pelvis with contrast. Radiation optimization: All CT scans at this facility use at least one of these dose optimization techniques: automated exposure control; mA and/or kV adjustment per patient size (includes targeted exams where dose is matched to clinical indication); or iterative reconstruction. Contrast material: OMNI 350; Contrast volume: 100 ml; Contrast route: INTRAVENOUS (IV); REPORTING DATA: Count of CT and Cardiac NM exams in prior 12 months: This patient has received 0 known CTs and 0 known cardiac nuclear medicine studies in the 12 months prior to the current study. COMPARISON: abdomen limited [id number] 08/26/2021 7:18 AM RADIATION DOSE METRICS: Total DLP (mGy-cm): 1038.88 FINDINGS: Lungs: There is subsegmental atelectasis in the lung bases. There is subsegmental atelectasis in the lung bases. Heart: There is mild cardiac enlargement. Liver: The liver is normal. Gallbladder and bile ducts: Cholelithiasis is present. There is no sign of cholecystitis. Pancreas: There is moderate atrophy of the pancreas. Spleen: The spleen is unremarkable. Adrenal glands: The adrenal glands are unremarkable. Kidneys and ureters: Moderate asymmetric atrophy of the left kidney. There is faint contrast in the right renal collecting system. The right kidney and ureter are unremarkable otherwise. Stomach and bowel: The stomach is fluid and gas distended. The proximal small bowel is moderately dilated and fluid-filled to an abrupt transition point in left lower quadrant (axial series 3, image 52) where there is mesenteric architectural distortion associated with a suture line in the sigmoid. Near the suture line there are closely apposed and decompressed adjacent proximal and distal portions of the sigmoid colon (axial series 3, image [id number]) proximal and distal to the gas distended sigmoid apex, suggesting an internal hernia containing a portion of the sigmoid and obstructing small bowel. The ascending, transverse and descending colon are nondistended and contain stool. The rectum contains stool and is unremarkable. Appendix: The appendix is not visible. Intraperitoneal space: Trace intraperitoneal free fluid within the ventral hernia. No free air. Vasculature: There is moderate aortic atherosclerotic disease. The portal, splenic and superior mesenteric veins are patent. Lymph nodes: There is no lymphadenopathy in the retroperitoneum, mesentery, pelvis or inguinal regions. Urinary bladder: The urinary bladder is unremarkable. Reproductive: The uterus is unremarkable. There is no adnexal mass or large cyst. Bones/joints: There is severe multilevel degenerative disease in the lumbar spine. Mild convex right lumbar scoliosis centered at L3. The pelvis and hips are intact. Soft tissues: There is a large complex ventral hernia with a wide neck containing bowel, fluid and mesenteric fat. The hernia also contains a portion of the nondilated transverse colon. CT/CT abdomen pelvis w con* [id number] IMPRESSION: 1. High-grade small-bowel obstruction. Transition point in the left lower quadrant. 2. At the transition point in the small bowel there is mesenteric architectural distortion suggesting internal hernia. 3. The sigmoid apex may also be involved in the internal hernia. There is focal decompression of the closely apposed portions of sigmoid colon proximal and distal to the sigmoid apex adjacent to the small bowel transition point. There is no high-grade colonic obstruction. 4. Large ventral hernia containing portions of dilated and nondilated small bowel, and most of the transverse colon. The small bowel in the hernia is incompletely imaged. Small bowel transition point is intra-abdominal. 5. Incidental findings above.
[2023-06-18] MEDS: iohexol 350 mg/mL 500 mL Btl (per mL) IV (04:40)
[2023-06-18] MEDS: LORazepam 2 mg/mL INJ 1 mL 1 MG IVP (06:32)
[2023-06-18] MEDS: cetacaine Spray 20 gm Can 1 SPRAY TOPICAL (06:32)
--- NOTE | 2023-06-18 06:45 | XR_ITS ---
WS: [id number] EXAMINATION: XR chest 1V portable [id number] REASON FOR EXAM: NG TUBE placement COMPARISON: None available. ORDER DATE: 06/18/2023 7:05 AM TECHNIQUE: A single, portable frontal chest x-ray was obtained. X-RAY FINDINGS: The lungs are clear. Pleural spaces are clear. No pleural effusions or pneumothorax. Cardiomediastinal silhouette is unremarkable except for prominent mitral annulus calcification. There is aortic atherosclerotic calcification. Enteric tube noted in the gastric antrum. No evidence for p ulmonary edema. Soft tissue and osseous structures are unremarkable. Impression: Unremarkable frontal portable chest x-ray.
--- NOTE | 2023-06-18 06:57 | PM.CONSULT ---
Providers/Reason For Consult Consulting Physician/Specialty*: General Surgery Reason for Consult*: SBO Primary Care Provider: Kvng Daniel MD History of Present Illness History of Present Illness Irma Lyn is a 82 year old female with extensive surgical history including colon resection for colon cancer about 15 years ago, complicated with multiple hernias that have been repaired and been recurrent. Patient presents with about 6 hours of abdominal pain distention nausea and vomiting. Stable at arrival to the emergency room white count was within normal limits a CT scan of the abdomen was obtained and showed evidence of a small bowel obstruction with a transition point intra-abdominal in the left lower quadrant which may be concerning for the possibility of internal hernia. I have been consulted for this finding. On my evaluation patient is comfortable at the time, denies severe abdominal pain. She had recently received an NG tube. Does not recall previous instances of a small bowel obstruction. Last gas and Stool Yesterday Review of Systems Narrative: 10 point review of system was done and is negative otherwise noted in HPI Medications/Allergies Home Medications Medication Instructions Recorded Confirmed Last Taken Type meclizine 25 mg tablet 25 mg PO TID PRN vertigo #20 tabs 06/17/21 06/15/23 Unknown Rx alendronate 70 mg tablet mg PO 11/04/22 06/15/23 Unknown History betamethasone dipropionate 0.05 % 1 applic topical BID PRN 11/04/22 06/15/23 Unknown History topical cream celecoxib 200 mg capsule (Celebrex) 200 mg PO DAILY 11/04/22 06/15/23 Unknown History citalopram 20 mg tablet 10 mg PO DAILY 11/04/22 06/15/23 Unknown History enalapril maleate 10 mg tablet 10 mg PO BID 11/04/22 06/15/23 Unknown History hydrochlorothiazide 50 mg tablet 50 mg PO DAILY 11/04/22 06/15/23 Unknown History mirabegron 50 mg tablet,extended 50 mg PO DAILY 11/04/22 06/15/23 Unknown History release 24 hr (Myrbetriq) potassium chloride 10 mEq 10 meq PO DAILY 11/04/22 06/15/23 Unknown History capsule,extended release simvastatin 40 mg tablet 40 mg PO DAILY 11/04/22 06/15/23 Unknown History triamcinolone acetonide 0.1 % 1 applic topical BID #454 grams 11/04/22 06/15/23 Unknown Rx topical ointment mupirocin 2 % topical ointment 1 applic topical BID #15 grams 11/17/22 06/15/23 Unknown Rx cephalexin 500 mg capsule 500 mg PO TID #21 caps 01/04/23 06/15/23 Unknown Rx honey 80 % topical gel (MediHoney 1 applic topical DAILY #44 mL 01/29/23 06/15/23 Unknown Rx (honey)) Toe Alignment Splint #1 ea 02/19/23 06/15/23 Unknown Rx Allergies Allergy/AdvReac Type Severity Reaction Status Date / Time ibuprofen [From Motrin] Allergy Hives Verified 06/15/23 09:09 PFSH Acute PFSH: Medical History Hyperlipidemia Hypertension Surgical History No pertinent past surgical history Vitals/I&O/Wt Last Vital Signs Temp 98.5 F 06/18/23 03:17 Pulse 68 06/18/23 06:30 Resp 18 06/18/23 06:30 BP 142/62 06/18/23 06:30 Pulse Ox 97 06/18/23 06:30 O2 Del Method Room Air 06/18/23 04:50 Weight last 48 hrs Weight 145 lb Physical Exam Narrative: General : Patient is well developed , no acute distress, oriented x3 Head : Normal cephalic, a-traumatic. Nose : Mucous membranes are without erythema. Lungs : Equal chest rise bilaterally, no use of accessory muscles, trachea is midline. CV : Rate and rhythm are normal. Abdomen : There is extremely large abdominal wall hernia, the hernia is not incarcerated, but there is loss of abdominal wall domain. The abdomen at the moment is nontender to palpation, appears to be decompressed. Data 06/18/23 03:31 06/18/23 03:31 A&P Assessment and plan (1) Small bowel obstruction: Plan After complete history, physical examination and review of all available clinical data the following is my assessment. This is a patient who has significant surgical history and presents with a small bowel obstruction. Small bowel obstruction is either caused due to additions or an internal hernia close to the level of the sigmoid anastomosis. While patient may initially receive nonoperative management, there is a high likelihood for failure due to the findings on the CT scan which may require surgery. After my personal review of the CT scan it is apparent that the patient has a loss of abdominal wall domain, with a massive ventral hernia, therefore is not the patient versus interest to be transferred to a higher level of care facility where abdominal wall reconstruction can be offered after surgery, I Splane to the patient that in the case of proceeding to surgery she will require an extensive operation to be able to close her abdominal wall, which may include bridging mesh, possible component separation or even temporary open abdomen with subsequent abdominal wall closure. At the moment we cannot offer the services in our institution, as they will require a higher level of expertise. My recommendation at this point is for transfer, patient at the moment of my evaluation is a stable, appears to be decompressed and vital signs are within normal limits. I do not see any contraindication from transfer from the general surgery standpoint. Coding Level of Care Code 29607 Diagnoses Small bowel obstruction K56.609
[2023-06-18] MEDS: piperacillin-tazobactam 3.375 GM in sodium chloride 0.9% (plus) 50 ML IV (07:04)
== END 2023-06-18 18:53 | disposition short-term general hospital (02) ==
PROVIDERS: Emergency Medicine; Emergency Provider Family Medicine; PCP Family Medicine
DX: K56.609 Unspecified intestinal obstruction, unspecified as to partial versus complete obstruction (principal); K43.9 Ventral hernia without obstruction or gangrene
CPT/HCPCS: 71045; 74177; 80053; 81001; 83605; 83690; 85025; 96365; 96366; 96375; 99285; J2060; J2405; J2543; Q9967

== ENCOUNTER 2024-02-06 08:19 | Emergency (ER) | payer MEDICARE, OTHER, MEDICAID, SELFPAY ==
[2024-02-06] VITALS (11 sets, daily range): BP systolic 119–172; BP diastolic 42–110; PULSE 61–73; RESP 16; TEMP 36.9; O2SAT 94–100
--- NOTE | 2024-02-06 08:31 | CTR_ITS ---
PROCEDURE INFORMATION: Exam: CT Abdomen And Pelvis Without Contrast Exam date and time: 02/06/2024 9:02 AM Age: 83 years old Clinical indication: Abdominal pain; Colic; Prior surgery; Surgery date: 6+ months; Surgery type: Partial colon removal; Patient HX: HX colon cancer many years ago. Recent HX of bowel obstruction TECHNIQUE: Imaging protocol: Computed tomography of the abdomen and pelvis without contrast. Radiation optimization: All CT scans at this facility use at least one of these dose optimization techniques: automated exposure control; mA and/or kV adjustment per patient size (includes targeted exams where dose is matched to clinical indication); or iterative reconstruction. COMPARISON: CT abdomen pelvis w con* [id number] 06/18/2023 4:38 AM RADIATION DOSE METRICS: Total DLP (mGy-cm): 728.17 FINDINGS: Lungs: Visualized lung bases are clear Heart: Heart size normal. Coronary artery atheromatous calcifications. Liver: Normal. No mass. Gallbladder and bile ducts: Re-identified cholelithiasis, without CT findings to suggest cholecystitis. Cholelithiasis without CT findings to suggest cholecystitis. Pancreas: Pancreatic atrophy. Spleen: Normal. No splenomegaly. Adrenal glands: Mild nonspecific left adrenal gland thickening Kidneys and ureters: Re-identified markedly atrophic left kidney. Stomach and bowel: There are findings suggestive of a closed loop hernia, with 1 transition point identified involving a loop of small bowel within a ventral hernia sac, and a 2nd transition point involving a few loops of right colon within a right spigelian hernia sac (series 3/40). Similar to findings on the comparison CT, jejunal loops , mesenteric fat and mesenteric vessels herniate through a 99 mm wide anterior abdominal defect; on today's study, the small bowel mesentery passing through the hernia neck demonstrates vascular congestion due to apparent twisting on itself within the hernia sac, with mildly fluid dilated small bowel and right colon loops seen between this point and the 2nd transition point at the right spigelian hernia. A few loops of right colon herniate through a right spigelian hernia 33 mm wide defect (series 3/52) . Trace free fluid within the ventral hernia sac. The transverse colon, left colon, and sigmoid colon are decompressed and are gas and feces filled. Cannot exclude a low-grade stricture at the mid sigmoid colon surgical anastomosis site . Rectal vault is feces filled. No findings of small bowel strangulation within the hernia sacs. Appendix: No evidence of appendicitis. Intraperitoneal space: See Soft tissues finding. Vasculature: Prominent aortoiliac atheromatous calcifications, notably affecting the ostia of the SMA and bilateral main renal arteries. Lymph nodes: Unremarkable. No enlarged lymph nodes. Urinary bladder: Unremarkable as visualized. Reproductive: Unremarkable as visualized. Bones/joints: No suspicious osseous findings. Similar severe discopathy at L2-L3, L3-L4 and L5-S1. Soft tissues: See stomach and bowel findings CT/CT abdomen pelvis wo con [id number] IMPRESSION: 1. Findings compatible with closed loop bowel obstruction, with 1st transition point identified within a ventral hernia sac containing jejunum with twisted small bowel mesentery, and a 2nd transition point identified within an adjacent right spigelian hernia where loops of hepatic flexure colon passes through a narrow fascial defect. Mildly fluid distended loops of jejunum, ileum and right colon between the 2 transition points as discussed. Findings discussed with Dr. garcia at 9:55 a.m. on 02/06/2024. 2. Chronic/incidental findings as above.
--- NOTE | 2024-02-06 08:37 | ED_ITS ---
HPI - Abdominal Pain 2 General: Chief Complaint: Abdominal Pain Stated Complaint: abd pain, n/v Time Seen by Provider: 02/06/24 08:20 Source: patient Mode of arrival: ambulatory History of Present Illness: 83-year-old presents emergency room with complaint of abdominal pain. She has a history of previous small bowel obstructions history of colon cancer with resection. The last 3 days she has had nausea and vomiting she is not able to keep any food or fluids down. She denies any dysuria urgency or frequency no chest pain no hematochezia or melena has had bilious vomitus. MD elicited complaint: abdominal pain Onset (ago): day(s) (3) Pain Consistency: constant Location: Diffuse Quality: cramping Exacerbating factors: eating Relieving factors: nothing Associated Symptoms: Reports GI cramping and vomiting; Denies anorexia, belching, bloating, change in bowel habits, change in stool character, chills, coffee ground emesis, constipation, diarrhea, dyspepsia, dysuria, excessive flatus, fever(s), heartburn, hematochezia, hematuria, hematemesis, fecal incontinence, loose stools, melena, nausea, poor appetite and syncope Review of Systems 2 Const: Denies: fever(s) or chills Card: Denies: chest pain or syncope Resp: Denies: dyspnea GI: Reports: vomiting and GI cramping; Denies: abdominal pain, nausea, hematemesis, coffee ground emesis, heartburn, diarrhea, constipation, bloating, belching, excessive flatus, fecal incontinence, change in bowel habits, change in stool character, hematochezia or melena : Denies: dysuria, urinary frequency, urinary urgency or hematuria Musc: Denies: neck pain or back pain Skin/Breast: Denies: rash PFSH ED 2 PFSH: Medical History Hyperlipidemia Hypertension Surgical History No pertinent past surgical history Physical Exam 2 Const: COMMON NORMALS: no acute distress GENERAL APPEARANCE: cooperative and comfortable ORIENTATION/CONSCIOUSNESS: Yes awake, Yes oriented to person, Yes oriented to place and Yes oriented to time HENMT: COMMON NORMALS: normocephalic, atraumatic and hearing grossly normal bilaterally HEAD & SCALP: normocephalic and atraumatic Resp: COMMON NORMALS: normal respiratory effort, No retractions, No use of accessory muscles and clear to auscultation bilaterally AUSCULTATION: clear to auscultation bilaterally Cardio: COMMON NORMALS: regular rate, regular rhythm and No murmurs present (Cardio) RATE: regular rate RHYTHM: regular rhythm GI: COMMON NORMALS: Soft to palpation and No hepatosplenomegaly present A USCULTATION: Yes normoactive bowel sounds PALPATION: Yes Soft to palpation, No Tenderness to palpation present (GI), No Guarding due to palpation present (GI) and Yes No hepatosplenomegaly present Extremity: COMMON NORMALS: normal to inspection, capillary refill normal, no clubbing, cyanosis or edema, no calf tenderness and no pedal edema Neuro: SENSORIUM/ORIENTATION: Yes oriented to person, Yes oriented to place and Yes oriented to time Skin: COMMON NORMALS: no rashes or lesions noted GENERAL SKIN EXAM: no rashes or lesions noted Course 2 Vital Signs: Vital signs: Vital Signs Temperature 98.4 F 02/06/24 08:28 Pulse Rate 69 02/06/24 08:28 Respiratory Rate 16 02/06/24 08:28 Blood Pressure 172/88 02/06/24 08:28 Pulse Oximetry 98 02/06/24 08:28 Oxygen Delivery Me thod Room Air 02/06/24 08:28 MDM - Abdominal Pain Medical Decision Making Large abdominal wall defect of ventral hernia with significant amount of bowel and side there is a transition point at the sigmoid anastomosis. I discussed Dr. Wells. He felt this may be able to be treated conservatively however if she needs surgical intervention the hernia defect should be closed and we do not have the adequate material for closure and he recommends transfer to tertiary care center or colorectal surgery will be available. Discussed with [facility] have any available beds. [facility] general surgeon felt they could not take him for the same reason Dr. Wells recommended transfer they do not have the ability there to close the abdominal wall defects. [facility] surgeon said they would accept on transfer but they have no beds available and are not sure when beds will become available. They recommend considering performing the operation here and realizing she may have to have the mesh placed in the abdominal wall defect at a later date. Finally called [facility] they agreed to take patient on transfer ER to ER. Patient transferred in stable condition with an NG by [facility]. Medical Records I reviewed the patient's medical records. Lab Data I reviewed the patient's lab results. 02/06/24 08:48 02/06/24 08:48 Labs/Radiology: Radiology Impressions Abdomen/Pelvis CT 02/06/24 08:31 IMPRESSION: 1. Findings compatible with closed loop bowel obstruction, with 1st transition point identified within a ventral hernia sac containing jejunum with twisted small bowel mesentery, and a 2nd transition point identified within an adjacent right spigelian hernia where loops of hepatic flexure colon passes through a narrow fascial defect. Mildly fluid distended loops of jejunum, ileum and right colon between the 2 transition points as discussed. Findings discussed with Dr. garcia at 9:55 a.m. on 02/06/2024. 2. Chronic/incidental findings as above. Chest X-Ray 02/06/24 15:19 IMPRESSION: 1. Enteric tube in place with tip outside the field of view. Abdominal radiograph is recommended. Laboratory Results WBC 13.54 10^3/uL (3.29-11.43) H 02/06/24 08:48 RBC 4.79 10^6/uL (3.85-5.65) 02/06/24 08:48 Hgb 14.40 g/dL (11.27-16.99) 02/06/24 08:48 Hct 43.0 % (36-47) 02/06/24 08:48 MCV 89.8 fl (85-98) 02/06/24 08:48 MCH 30.1 pg (27-33) 02/06/24 08:48 MCHC 33.5 g/dL (30-55) 02/06/24 08:48 RDW 13.2 % (12.1-15.1) 02/06/24 08:48 Plt Count 316 10^3/cmm (157-399) 02/06/24 08:48 MPV 8.7 fL (7.4-10.4) 02/06/24 08:48 Neut % (Auto) 80.2 % 02/06/24 08:48 Lymph % (Auto) 13.2 % 02/06/24 08:48 [place] % (Auto) 5.9 % 02/06/24 08:48 Eos % (Auto) 0.1 % 02/06/24 08:48 Baso % (Auto) 0.3 % 02/06/24 08:48 Neut # (Auto) 10.86 10^3/uL (1.8-7.7) H 02/06/24 08:48 Lymph # (Auto) 1.8 10^3/uL (0.8-4.8) 02/06/24 08:48 [place] # (Auto) 0.8 10^3/uL (0.2-0.9) 02/06/24 08:48 Eos # (Auto) 0.0 10^3/uL (0.0-0.8) 02/06/24 08:48 Baso # (Auto) 0.0 10^3/uL (0.0-0.1) 02/06/24 08:48 Nucleated RBC % (auto) 0 % 02/06/24 08:48 Nucleated RBCs # 0.0 /100WBC 02/06/24 08:48 Sodium 135 mmol/L (136-145) L 02/06/24 08:48 Potassium 3.6 mmol/L (3.5-5.1) 02/06/24 08:48 Chloride 96 mmol/L (98-107) L 02/06/24 08:48 Carbon Dioxide 22 mmol/L (22-29) 02/06/24 08:48 Anion Gap 20.6 (5-19) H 02/06/24 08:48 BUN 29 mg/dL (8-23) H 02/06/24 08:48 Creatinine 1.0 mg/dL (0.5-0.9) H 02/06/24 08:48 GFR Calculation Not Reportable 02/06/24 08:48 Glucose 137 mg/dL (65-115) H 02/06/24 08:48 Calculated Osmolality 288 mOsm/kg (285-295) 02/06/24 08:48 Lactic Acid 2.9 mmol/L (0.5-2.2) H 02/06/24 08:48 Lactic Acid (Sepsis) 2.1 mmol/L (0.5-2.2) 02/06/24 12:23 Calcium 9.9 mg/dL (8.5-10.5) 02/06/24 08:48 Total Bilirubin 1.4 mg/dL (0.15-1.2) H 02/06/24 08:48 AST 20 U/L (0-32) 02/06/24 08:48 ALT 15 U/L (0-33) 02/06/24 08:48 Alkaline Phosphatase 59 U/L (35-105) 02/06/24 08:48 Total Protein 7.7 g/dL (6.6-8.7) 02/06/24 08:48 Albumin 4.1 g/dL (3.5-5.2) 02/06/24 08:48 Globulin 3.6 g/dL (1.3-4.6) 02/06/24 08:48 Lipase 23 U/L (13-60) 02/06/24 08:48 Urine Color Yellow (Yellow) 02/06/24 09:53 Urine Appearance Clear (CLEAR) 02/06/24 09:53 Urine pH 6 (5-7) 02/06/24 09:53 Ur Specific [place] 1.025 (1.005-1.030) 02/06/24 09:53 Urine Protein 3+ (Negative) H 02/06/24 09:53 Urine Glucose (UA) Norm (Normal) 02/06/24 09:53 Urine Ketones 1+ (Negative) H 02/06/24 09:53 Urine Blood Neg (Negative) 02/06/24 09:53 Urine Nitrate Negative (Negative) 02/06/24 09:53 Urine Bilirubin 1+ (Negative) H 02/06/24 09:53 Urine Urobilinogen 1 mg/dL (Negative) H 02/06/24 09:53 Ur Leukocyte Esterase Negative (Negative) 02/06/24 09:53 Urine RBC None /hpf (0-2) 02/06/24 09:53 Urine WBC None /hpf (0-5) 02/06/24 09:53 Ur Squamous Epith Cells None /hpf (0-5) 02/06/24 09:53 Amorphous Sediment Not Reportable 02/06/24 09:53 Urine Bacteria 1+ /hpf (NONE) H 02/06/24 09:53 All radiology interpretation(s) finalized by discharge Discharge Plan Discharge Patient Disposition: Transfer to ED Clinical Impression: Small bowel obstruction, Abdominal wall hernia Condition: Stable Prescriptions: No Action enalapril maleate 10 mg tablet 10 mg PO QAM alendronate 70 mg tablet 70 mg PO Q7D Rx Instructions: on wednesday citalopram 20 mg tablet 20 mg PO QAM hydrochlorothiazide 50 mg tablet 50 mg PO QAM celecoxib [Celebrex] 200 mg capsule 200 mg PO QAM simvastatin 40 mg tablet 40 mg PO QPM Myrbetriq 50 mg tablet extended release 24 hr 50 mg PO BEDTIME betamethasone dipropionate 0.05 % cream 1 applic topical BID PRN (Reason: Rash) (DME) Toe Alignment Splint See Rx Instructions .Route .MEDSUPPLY Qty: 1 0RF Rx Instructions: As directed potassium chloride [Klor-Con M10] 10 mEq tablet,ER particles/crystals 10 meq PO QAM multivitamin Tablet 1 tab PO QPM triamcinolone acetonide 0.1 % ointment 1 applic topical BID PRN (Reason: unknown) Rx Instructions: Apply to affected area no more than two weeks per month. Not for face. mupirocin 2 % ointment 1 applic topical BID PRN (Reason: unknown) Referrals: Kvng Daniel MD [Primary Care Provider] - Coding Level of Care Code ED Night Stocker for Terry Posey
[2024-02-06 08:53] LABS: Basophils % 0.3 %; Eosinophils % 0.1 %; Lymphocytes # 1.8 10^3/uL (0.8-4.8); Lymphocytes % 13.2 %; Mean Corpuscular HGB Conc 33.5 g/dL (30-55); Mean Corpuscular Hemoglobin 30.1 pg (27-33); Mean Corpuscular Volume 89.8 fl (85-98); Mean Platelet Volume 8.7 fL (7.4-10.4); Monocytes # 0.8 10^3/uL (0.2-0.9); Monocytes % 5.9 %; Neutrophils # 10.86 10^3/uL (1.8-7.7); Neutrophils % 80.2 %; Nucleated Red Blood Cells % 0 %; Platelet Count 316 10^3/cmm (157-399); Red Blood Count 4.79 10^6/uL (3.85-5.65); Red Cell Distribution Width 13.2 % (12.1-15.1); White Blood Count 13.54 10^3/uL (3.29-11.43)
--- NOTE | 2024-02-06 08:58 | PC.PHAR ---
pt brought in medication bottles -pt states took am meds but threw up after taking-pt states she no longer takes mirtazapine 7.5mg qpm filled on 11/16/23 90d/s-medication was not with her other meds pt states if its not in the bag then shes not taking anymore-
[2024-02-06 09:13] LABS: Lactic Sepsis W/Reflex 2.9 mmol/L (0.5-2.2)
[2024-02-06 09:15] LABS: Alanine Aminotransferase 15 U/L (0-33); Albumin Level 4.1 g/dL (3.5-5.2); Alkaline Phosphatase 59 U/L (35-105); Anion Gap 20.6 (5-19); Aspartate Amino Transferase 20 U/L (0-32); Blood Urea Nitrogen 29 mg/dL (8-23); Calcium 9.9 mg/dL (8.5-10.5); Carbon Dioxide 22 mmol/L (22-29); Chloride 96 mmol/L (98-107); Globulin 3.6 g/dL (1.3-4.6); Glucose 137 mg/dL (65-115); Lipase 23 U/L (13-60); Osmolality Calculated 288 mOsm/kg (285-295); Potassium 3.6 mmol/L (3.5-5.1); Sodium 135 mmol/L (136-145); Total Bilirubin 1.4 mg/dL (0.15-1.2); Total Protein 7.7 g/dL (6.6-8.7)
[2024-02-06 09:16] LABS: Creatinine Clr Calc Pharmacy 39.0651
[2024-02-06 10:05] LABS: Add Urine Microscopic? YES; Bilirubin Urine 1+ (Negative); Blood Urine Neg (Negative); Glucose Urine UA Norm (Normal); Ketones Urine 1+ (Negative); Leukocyte Esterase Urine Negative (Negative); Nitrate Urine Negative (Negative); Protein Urine 3+ (Negative); Specific Gravity, Urine 1.025 (1.005-1.030); Urine Appearance Clear (CLEAR); Urine Color Yellow (Yellow); Urobilinogen Urine 1 mg/dL (Negative); pH Urine 6 (5-7)
[2024-02-06 10:07] LABS: Add Urine Culture? No; Bacteria Urine 1+ /hpf
--- NOTE | 2024-02-06 10:28 | ECG_ITS ---
[facility] Test Date: 2024-02-06 Pat Name: Irma Lyn Department: Room: Gender: Female Rib Bender: : 1940 Requested By: Husam Sheikh Order Number: [id number] Wesley MD: Babak Dominguez M.D. Measurements Intervals [place] Rate: 65 P: 59 SD: 171 QRS: 45 QRSD: 100 T: 57 QT: 466 QTc: 487 Interpretive Statements SINUS RHYTHM NONSPECIFIC T-WAVE ABNORMALITY PROLONGED QT INTERVAL Compared to ECG 06/17/2021 02:03:42 T-wave abnormality now present Prolonged QT interval now present Myocardial infarct finding no longer present Electronically Signed On 02-06-2024 21:00:43 CDT by Babak Dominguez M.D. [id number]
--- NOTE | 2024-02-06 10:29 | XRR_ITS ---
PROCEDURE INFORMATION: Exam: XR Chest Exam date and time: 02/06/2024 10:30 AM Age: 83 years old Clinical indication: Device placement; Ng tube; Additional info: Ng placement TECHNIQUE: Imaging protocol: Radiologic exam of the chest. Views: 1 view. COMPARISON: CT abdomen pelvis con [id number] 02/06/2024 9:02 AM FINDINGS: Tubes, catheters and devices: NG tube is present with tip projecting over the proximal gastric body. Lungs: Left CP angle region calcified granuloma. No consolidation. Pleural spaces: Unremarkable. No pleural effusion. No pneumothorax. Heart/Mediastinum: Unremarkable. No cardiomegaly. Bones/joints: No suspicious osseous findings. XR/XR chest 1V portable [id number] IMPRESSION: No acute findings.
[2024-02-06] MEDS: piperacillin-tazobactam 3.375 GM in sodium chloride 0.9% (plus) 50 ML IV (10:37)
[2024-02-06 10:39] LABS: Reflex Lactate Order REFLEX LACTIC ORDERD
--- NOTE | 2024-02-06 11:42 | ECG_ITS ---
[facility] Test Date: 2024-02-06 Pat Name: Irma Lyn Department: Room: Gender: Female Entertainment Reporter: : 1940 Requested By: Husam Sheikh Order Number: [id number] Wesley MD: Babak Dominguez M.D. Measurements Intervals [place] Rate: 64 P: 59 NV: 163 QRS: 32 QRSD: 101 T: 40 QT: 423 QTc: 437 Interpretive Statements SINUS RHYTHM NONSPECIFIC T-WAVE ABNORMALITY Compared to ECG 02/06/2024 10:45:43 Prolonged QT interval no longer present T-wave abnormality still present Electronically Signed On 02-06-2024 21:00:48 CDT by Babak Dominguez M.D. [id number]
[2024-02-06] MEDS: fentaNYL 50 mcg/mL INJ 2mL IVP (12:58)
[2024-02-06] MEDS: D5-NS 0.45% + KCL 20 mEq 20 MEQ/1,000 ML BAG 125 MEQ IV (13:02)
[2024-02-06 13:13] LABS: Lactic Acid level (Lactate) 2.1 mmol/L (0.5-2.2)
--- NOTE | 2024-02-06 15:19 | XRR_ITS ---
PROCEDURE INFORMATION: Exam: XR Chest Exam date and time: 02/06/2024 3:20 PM Age: 83 years old Clinical indication: Device placement; Ng tube; Additional info: Ng placement TECHNIQUE: Imaging protocol: Radiologic exam of the chest. Views: 1 view. COMPARISON: CR (CHEST, ) 02/06/2024 10:30 AM FINDINGS: Lungs: No focal consolidation. Pleural spaces: No evidence of pneumothorax. No evidence of pleural effusion. Heart/Mediastinum: Cardiomediastinal silhouette is within normal limits. Enteric tube in place with tip outside the field of view. Bones/joints: No evidence of acute osseous abnormality. XR/XR chest 1V portable [id number] IMPRESSION: 1. Enteric tube in place with tip outside the field of view. Abdominal radiograph is recommended.
== END 2024-02-06 16:44 ==
PROVIDERS: Emergency Provider Family Medicine; PCP Family Medicine
DX: K43.6 Other and unspecified ventral hernia with obstruction, without gangrene (principal); E78.5 Hyperlipidemia, unspecified; I10 Essential (primary) hypertension
CPT/HCPCS: 36415; 71045; 74176; 80053; 81001; 83605; 83690; 85025; 93005; 96365; 96366; 96375; 99285; J2543; J3010

== ENCOUNTER 2024-02-27 04:15 | Emergency (ER) | payer MEDICARE, OTHER, MEDICAID, SELFPAY ==
[2024-02-27 04:20] VITALS: BMI 27.4
[2024-02-27 04:28] VITALS: BP 149/59; PULSE 61; RESP 18; O2SAT 97
[2024-02-27 04:51] LABS: Basophils # 0.1 10^3/uL (0.0-0.1); Basophils % 0.7 %; Eosinophils # 0.5 10^3/uL (0.0-0.8); Eosinophils % 4.1 %; Hematocrit 28.8 % (36-47); Lymphocytes # 2.4 10^3/uL (0.8-4.8); Lymphocytes % 19.2 %; Mean Corpuscular HGB Conc 31.6 g/dL (30-55); Mean Corpuscular Hemoglobin 29.4 pg (27-33); Mean Corpuscular Volume 92.9 fl (85-98); Mean Platelet Volume 8.2 fL (7.4-10.4); Monocytes # 1.3 10^3/uL (0.2-0.9); Monocytes % 10.3 %; Neutrophils # 7.81 10^3/uL (1.8-7.7); Neutrophils % 63.4 %; Nucleated Red Blood Cells % 0 %; Platelet Count 548 10^3/cmm (157-399); Red Cell Distribution Width 14.8 % (12.1-15.1)
--- NOTE | 2024-02-27 04:55 | CTR_ITS ---
PROCEDURE INFORMATION: Exam: CT Abdomen And Pelvis With Contrast Exam date and time: 02/27/2024 5:06 AM Age: 83 years old Clinical indication: Nausea and vomiting and other: Incision site bleeding; Prior surgery; Surgery date: <1 month; Surgery type: Colon resection approximately three weeks ago. Hernia repair. Patient HX: New onset of bleeding from ventral incision site from colon resection. C/O n/v. Subcu drain in place. History of colon cancer. ; Additional info: Bleeding from inscision post op 3 weeks TECHNIQUE: Imaging protocol: Computed tomography of the abdomen and pelvis with contrast. Radiation optimization: All CT scans at this facility use at least one of these dose optimization techniques: automated exposure control; mA and/or kV adjustment per patient size (includes targeted exams where dose is matched to clinical indication); or iterative reconstruction. Contrast material: OMNI 350; Contrast volume: 100 ml; Contrast route: INTRAVENOUS (IV); COMPARISON: CT abdomen pelvis wo con [id number] 02/06/2024 9:02 AM RADIATION DOSE METRICS: Total DLP (mGy-cm): 679.54 FINDINGS: Lungs: Visualized lung bases demonstrate small partially imaged bilateral pleural effusions, mild bibasilar compressive atelectasis, and partially imaged basilar RLL subsegmental atelectasis. Heart: Heart is borderline to mildly enlarged. Coronary artery atheromatous calcifications. Diaphragm: Moderate hiatal hernia Liver: Normal. No mass. Gallbladder and bile ducts: Gallbladder contains several gallstones; no CT findings to suggest cholecystitis Pancreas: Pancreas is atrophic. Spleen: Normal. No splenomegaly. Adrenal glands: Unremarkable adrenal glands. Re-identified nonspecific mild left adrenal gland thickening. Kidneys and ureters: Re-identified markedly atrophic left kidney. 9 mm right renal cystic lesion with mildly hyperdense contents may represent a proteinaceous/hemorrhagic cysts. Consider nonemergent renal ultrasound follow-up for further characterization. Stomach and bowel: Large amount of stool distends the entire nondilated colon; consider constipation. Diffuse up to moderate abnormal dilation of the jejunal and ileal loops, which are distended with fluid and fecalized material indicative delayed intestinal transit. Appendix: Appendix not definitely visualized. No findings to suggest appendicitis. Intraperitoneal space: See Soft tissues finding. Vasculature: Prominent aortoiliac atheromatous calcifications, with notable involvement of the ostia of the celiac trunk, SMA and bilateral main renal arteries. Lymph nodes: Borderline prominent bilateral inguinal nodes. Scattered shotty mesenteric nodes. Urinary bladder: Unremarkable as visualized. Reproductive: Unremarkable as visualized. Bones/joints: No suspicious osseous findings. Similar severe discopathy at L2-L3, L3-L4 and L5-S1. Soft tissues: Patient is status post surgical correction of previously seen ventral and spigelian hernias containing bowel loops. At the midline lower abdominal ventral incision site, contained within the subcutaneous fat is a 4.4 x 11.8 cm (transverse) x 14.6 cm (cc) ovoid fluid collection with avidly enhancing nelson and moderate surrounding subcutaneous fatty induration. An anterior right abdominal percutaneous drainage catheter has its tip coiling within the collection of dense fluid intermixed with small gas bubbles. As seen on series 4, image 50 and series 10, image 48, this large fluid collection communicates through a small fascial defect with an oblong 13 x 60 mm enhancing walled collection seen just deep to the anterior abdominal fascia. Mild induration of the surrounding anterior abdominal mesenteric fat. Tubular fluid-filled tract within the right anterior lower abdominal subcutaneous fat emanates from the lower margin of the large fluid collection and communicates with the skin surface, likely an old percutaneous drain catheter tract. Suspicion of a 12 mm wide sinus tract connecting the anterior abdominal skin surface with the large fluid collection as seen on series /72. CT/CT abdomen pelvis w con* [id number] IMPRESSION: 1. Patient is status post surgical correction of previously seen ventral and spigelian hernias containing bowel loops. On today's exam there is a large encapsulated fluid collection centered at the midline incision site subcutaneous fat, containing dense fluid and gas bubbles ; this communicates through a small fascial defect with a smaller intraperitoneal walled fluid collection, with up to moderate inflammation of the surrounding subcutaneous and anterior intraperitoneal fat planes. Differential diagnosis for the fluid collections includes abscess and infected resolving hematoma. A right anterior approach drainage catheter tip coils within the large fluid collection. Question of sinus tract(s) as above. See above discussion. 2. Large amount of stool distends the entire nondilated colon; consider constipation. Diffuse up to moderate abnormal dilation of the jejunal and ileal loops, which are distended with fluid and fecalized material, indicative delayed intestinal transit. 3. Visualized lung bases demonstrate small partially imaged bilateral pleural effusions, mild bibasilar compressive atelectasis, and partially imaged basilar RLL subsegmental atelectasis. 4. Chronic findings as above 5. Salient findings discussed with Dr. Reese At 6:55 a.m. on 02/27/2024. COMMENTS: Consistent with the [employer]'s Incidental Findings Committee white paper (J Am Mary Radiol 2018): Any incidental renal lesion less than 1 cm or classified as too small to characterize, or any incidental cystic renal lesion characterized as simple-appearing, is likely benign. No follow-up imaging is recommended for these lesions per consensus recommendations based on imaging criteria.
[2024-02-27 05:02] LABS: INR 1.03 (0.8-1.2)
[2024-02-27 05:03] LABS: Partial Thromboplastin Time 31.8 SECONDS (23.9-36.7)
[2024-02-27 05:07] LABS: Alanine Aminotransferase 18 U/L (0-33); Albumin Level 2.9 g/dL (3.5-5.2); Alkaline Phosphatase 90 U/L (35-105); Anion Gap 13.6 (5-19); Aspartate Amino Transferase 20 U/L (0-32); Blood Urea Nitrogen 20 mg/dL (8-23); C Reactive Protein 12.1 mg/L (0.0-4.9); Calcium 8.2 mg/dL (8.5-10.5); Carbon Dioxide 24 mmol/L (22-29); Chloride 105 mmol/L (98-107); Creatinine Clr Calc Pharmacy 47.3319; Globulin 3.5 g/dL (1.3-4.6); Glucose 82 mg/dL (65-115); Lipase 186 U/L (13-60); Osmolality Calculated 290 mOsm/kg (285-295); Potassium 3.6 mmol/L (3.5-5.1); Sodium 139 mmol/L (136-145); Total Bilirubin 0.2 mg/dL (0.15-1.2); Total Protein 6.4 g/dL (6.6-8.7)
[2024-02-27] MEDS: iohexol 350 mg/mL 500 mL Btl (per mL) IV (05:07)
--- NOTE | 2024-02-27 05:07 | ED_ITS ---
HPI - GI Bleed 2 General: Chief complaint: GI Bleed Stated complaint: gi bleed Time Seen by Provider: 02/27/24 04:34 History of Present Illness: 83[facility]year-[facility] who is 3 weeks status post open partial colectomy. She started bleeding from her incision this morning. She is having an increase in pain, although be at mild. She is not vomiting. No fever. PFSH ED 2 PFSH: Medical History Hyperlipidemia Hypertension Surgical History No pertinent past surgical history Physical Exam 2 Const: COMMON NORMALS: no acute distress GENERAL APPEARANCE: cooperative; not ill appearing and not frail appearing HENMT: COMMON NORMALS: normocephalic, atraumatic and Normal external nose present HEAD & SCALP: normocephalic and atraumatic FACE & SINUS: normal facial exam and face symmetric NOSE: Normal external nose present Eye: COMMON NORMALS: Equal, round and reactive pupils present and EOMs intact bilaterally PUPIL: Yes Equal, round and reactive pupils present Neck/C-Spine: GENERAL: Yes trachea midline Chest: CHEST: Yes Symmetrical chest wall rise Resp: COMMON NORMALS: normal respiratory effort, No retractions, No use of accessory muscles and clear to auscultation bilaterally AUSCULTATION: clear to auscultation bilaterally Cardio: COMMON NORMALS: regular rate and regular rhythm RATE: regular rate RHYTHM: regular rhythm GI: OTHER: Hematoma present with drain in place. Mild tenderness. Minimal erythema. No warmth. Small amount of blood from umbilical area near incision. No purulent drainage. Extremity: COMMON NORMALS: no pedal edema Neuro: ZANDRA COMA SCALE: document GCS findings [place] coma scale eye opening: Spontaneous [place] coma scale verbal response: Orientated [place] coma scale motor response: Obey commands [place] coma scale total score: 15 S ENSORY EXAM: Yes extremities (intact) Psych: COMMON NORMALS: speech normal SPEECH: Yes normal speech Skin: COMMON NORMALS: no rashes or lesions noted GENERAL SKIN EXAM: no rashes or lesions noted Course 2 Vital Signs: Vital signs: Vital Signs Pulse Rate 77 02/27/24 07:18 Respiratory Rate 16 02/27/24 07:18 Blood Pressure 154/65 02/27/24 07:18 Pulse Oximetry 99 02/27/24 07:18 Oxygen Delivery Me thod Room Air 02/27/24 05:37 MDM - GI Bleed Medical Decision Making Vitals are stable. Patient is mildly tender. Her white blood cell count is 12.3. Hemoglobin is 9.1. BMP is not remarkable. CRP is only 12. As her last hemoglobin was significantly higher, at least prior to surgery, will CT scan this patient. CT is pending. CT scan shows postoperative hematoma with drain placement. Likely the source of the periumbilical bleeding. It may be infected. Clinically, she is stable. She has follow-up appointment this coming week. She will be allowed discharge to return for any worsening symptoms, etc. Lab Data 02/27/24 04:42 02/27/24 04:42 Radiology Impressions Abdomen/Pelvis CT 02/27/24 04:55 IMPRESSION: 1. Patient is status post surgical correction of previously seen ventral and spigelian hernias containing bowel loops. On today's exam there is a large encapsulated fluid collection centered at the midline incision site subcutaneous fat, containing dense fluid and gas bubbles ; this communicates through a small fascial defect with a smaller intraperitoneal walled fluid collection, with up to moderate inflammation of the surrounding subcutaneous and anterior intraperitoneal fat planes. Differential diagnosis for the fluid collections includes abscess and infected resolving hematoma. A right anterior approach drainage catheter tip coils within the large fluid collection. Question of sinus tract(s) as above. See above discussion. 2. Large amount of stool distends the entire nondilated colon; consider constipation. Diffuse up to moderate abnormal dilation of the jejunal and ileal loops, which are distended with fluid and fecalized material, indicative delayed intestinal transit. 3. Visualized lung bases demonstrate small partially imaged bilateral pleural effusions, mild bibasilar compressive atelectasis, and partially imaged basilar RLL subsegmental atelectasis. 4. Chronic findings as above 5. Salient findings discussed with Dr. Reese At 6:55 a.m. on 02/27/2024. COMMENTS: Consistent with the [employer]'s Incidental Findings Committee white paper (J Am Mary Radiol 2018): Any incidental renal lesion less than 1 cm or classified as too small to characterize, or any incidental cystic renal lesion characterized as simple-appearing, is likely benign. No follow-up imaging is recommended for these lesions per consensus recommendations based on imaging criteria. Laboratory Results WBC 12.30 10^3/uL (3.29-11.43) H 02/27/24 04:42 RBC 3.10 10^6/uL (3.85-5.65) L 02/27/24 04:42 Hgb 9.10 g/dL (11.27-16.99) L 02/27/24 04:42 Hct 28.8 % (36-47) L 02/27/24 04:42 MCV 92.9 fl (85-98) 02/27/24 04:42 MCH 29.4 pg (27-33) 02/27/24 04:42 MCHC 31.6 g/dL (30-55) 02/27/24 04:42 RDW 14.8 % (12.1-15.1) 02/27/24 04:42 Plt Count 548 10^3/cmm (157-399) H 02/27/24 04:42 MPV 8.2 fL (7.4-10.4) 02/27/24 04:42 Neut % (Auto) 63.4 % 02/27/24 04:42 Lymph % (Auto) 19.2 % 02/27/24 04:42 [place] % (Auto) 10.3 % 02/27/24 04:42 Eos % (Auto) 4.1 % 02/27/24 04:42 Baso % (Auto) 0.7 % 02/27/24 04:42 Neut # (Auto) 7.81 10^3/uL (1.8-7.7) H 02/27/24 04:42 Lymph # (Auto) 2.4 10^3/uL (0.8-4.8) 02/27/24 04:42 [place] # (Auto) 1.3 10^3/uL (0.2-0.9) H 02/27/24 04:42 Eos # (Auto) 0.5 10^3/uL (0.0-0.8) 02/27/24 04:42 Baso # (Auto) 0.1 10^3/uL (0.0-0.1) 02/27/24 04:42 Nucleated RBC % (auto) 0 % 02/27/24 04:42 Nucleated RBCs # 0.0 /100WBC 02/27/24 04:42 PT 13.80 SECONDS (12.1-14.9) 02/27/24 04:42 INR 1.03 (0.8-1.2) 02/27/24 04:42 APTT 31.8 SECONDS (23.9-36.7) 02/27/24 04:42 Sodium 139 mmol/L (136-145) 02/27/24 04:42 Potassium 3.6 mmol/L (3.5-5.1) 02/27/24 04:42 Chloride 105 mmol/L (98-107) 02/27/24 04:42 Carbon Dioxide 24 mmol/L (22-29) 02/27/24 04:42 Anion Gap 13.6 (5-19) 02/27/24 04:42 BUN 20 mg/dL (8-23) 02/27/24 04:42 Creatinine 0.8 mg/dL (0.5-0.9) 02/27/24 04:42 GFR Calculation Not Reportable 02/27/24 04:42 Glucose 82 mg/dL (65-115) 02/27/24 04:42 Calculated Osmolality 290 mOsm/kg (285-295) 02/27/24 04:42 Calcium 8.2 mg/dL (8.5-10.5) L 02/27/24 04:42 Total Bilirubin 0.2 mg/dL (0.15-1.2) 02/27/24 04:42 AST 20 U/L (0-32) 02/27/24 04:42 ALT 18 U/L (0-33) 02/27/24 04:42 Alkaline Phosphatase 90 U/L (35-105) 02/27/24 04:42 C-Reactive Protein 12.1 mg/L (0.0-4.9) H 02/27/24 04:42 Total Protein 6.4 g/dL (6.6-8.7) L 02/27/24 04:42 Albumin 2.9 g/dL (3.5-5.2) L 02/27/24 04:42 Globulin 3.5 g/dL (1.3-4.6) 02/27/24 04:42 Lipase 186 U/L (13-60) H 02/27/24 04:42 Urine Color Yellow (Yellow) 02/27/24 06:33 Urine Appearance Clear (CLEAR) 02/27/24 06:33 Urine pH 7 (5-7) 02/27/24 06:33 Ur Specific [place] 1.005 (1.005-1.030) 02/27/24 06:33 Urine Protein Neg (Negative) 02/27/24 06:33 Urine Glucose (UA) Norm (Normal) 02/27/24 06:33 Urine Ketones Negative (Negative) 02/27/24 06:33 Urine Blood Neg (Negative) 02/27/24 06:33 Urine Nitrate Negative (Negative) 02/27/24 06:33 Urine Bilirubin Neg (Negative) 02/27/24 06:33 Urine Urobilinogen Norm mg/dL (Negative) 02/27/24 06:33 Ur Leukocyte Esterase Negative (Negative) 02/27/24 06:33 All radiology interpretation(s) finalized by discharge Discharge Plan Discharge Patient Disposition: Home Clinical Impression: Postoperative hematoma Condition: Stable Prescriptions: No Action enalapril maleate 10 mg tablet 10 mg PO QAM alendronate 70 mg tablet 70 mg PO Q7D Rx Instructions: on wednesday citalopram 20 mg tablet 20 mg PO QAM hydrochlorothiazide 50 mg tablet 50 mg PO QAM celecoxib [Celebrex] 200 mg capsule 200 mg PO QAM simvastatin 40 mg tablet 40 mg PO QPM Myrbetriq 50 mg tablet extended release 24 hr 50 mg PO BEDTIME betamethasone dipropionate 0.05 % cream 1 applic topical BID PRN (Reason: Rash) (DME) Toe Alignment Splint See Rx Instructions .Route .MEDSUPPLY Qty: 1 0RF Rx Instructions: As directed potassium chloride [Klor-Con M10] 10 mEq tablet,ER particles/crystals 10 meq PO QAM multivitamin Tablet 1 tab PO QPM triamcinolone acetonide 0.1 % ointment 1 applic topical BID PRN (Reason: unknown) Rx Instructions: Apply to affected area no more than two weeks per month. Not for face. mupirocin 2 % ointment 1 applic topical BID PRN (Reason: unknown) Discharge Orders: Discharge ED (Routine); Ordered 02/27/24 Ordered By: Ravi Reese Referrals: Kvng Daniel MD [Primary Care Provider] - 4-7 days Patient Instructions: Hematoma (ED), Opioid Safety, Pain Management Activity Restrictions/Additional Instructions: Return for fever, worsening pain, worsening bleeding, any other problems. Have your blood count rechecked in 2 days to ensure bleeding is not continuing. Coding Level of Care Code ED Unix Administrator for Terry Posey
[2024-02-27 05:37] VITALS: BP 151/51; PULSE 77; RESP 16; O2SAT 93
[2024-02-27 06:00] VITALS: BP 137/66; PULSE 67; O2SAT 96
[2024-02-27 06:38] VITALS: BP 154/65; PULSE 77; RESP 16; O2SAT 99
[2024-02-27 06:44] LABS: Add Urine Microscopic? NO; Charge for UA Resulting for Rev
[2024-02-27 06:49] LABS: Bilirubin Urine Neg (Negative); Blood Urine Neg (Negative); Glucose Urine UA Norm (Normal); Ketones Urine Negative (Negative); Leukocyte Esterase Urine Negative (Negative); Nitrate Urine Negative (Negative); Protein Urine Neg (Negative); Specific Gravity, Urine 1.005 (1.005-1.030); Urine Appearance Clear (CLEAR); Urine Color Yellow (Yellow); Urobilinogen Urine Norm (Negative); pH Urine 7 (5-7)
[2024-02-27 07:18] VITALS: BP 154/65; PULSE 77; RESP 16; O2SAT 99
--- NOTE | 2024-02-27 07:26 | PC.NURSE ---
Attempted to contact [facility] at [phone], attempted 4 different times to contact [facility] with no answer. Automated phone service states there are 4 different nurses stations, attempted to contact each nurses station with no answer.
== END 2024-02-27 07:27 | disposition home or self-care (01) ==
PROVIDERS: Emergency Provider Emergency Medicine; PCP Family Medicine
DX: L76.32 Postprocedural hematoma of skin and subcutaneous tissue following other procedure (principal); E78.5 Hyperlipidemia, unspecified; I10 Essential (primary) hypertension
CPT/HCPCS: 74177; 80053; 81003; 83690; 85025; 85610; 85730; 86140; 99285; Q9967

== ENCOUNTER 2024-04-14 15:55 | Emergency (ER) | payer MEDICARE, OTHER, MEDICAID, SELFPAY ==
[2024-04-14 16:04] VITALS: BP 134/77; PULSE 66; RESP 16; TEMP 36.5; O2SAT 98
--- NOTE | 2024-04-14 19:01 | ED_ITS ---
HPI - Skin/Abscess/Foreign Bdy 2 General: Chief complaint: Skin/Abscess/Foreign Body Stated complaint: new abscess at surg site/ blood in urine Time Seen by Provider: 04/14/24 18:47 History of Present Illness: 83-year-old female presents to the emerg ency department with her daughter for evaluation of new abscess. Within the last few months the patient has had a bowel resection and incision and drainage. She still has packing and a wound in her abdomen. The patient's daughter was concerned because her new area of redness that developed today just above the area with packing in it. Patient denies fever, chills, sweats. The patient's daughter does state that she is concerned that her mother might have blood in her urine. The patient does report some frequency and urgency. She does report 1 episode of hematuria 1 day ago but nothing since that time. Review of Systems 2 General: Reports: 10 or more systems reviewed and unremarkable except in HPI and below PFSH ED 2 PFSH: Medical History Hyperlipidemia Hypertension Surgical History No pertinent past surgical history Physical Exam 2 Const: COMMON NORMALS: no acute distress, patient oriented x3, healthy appearing, alert and well nourished HENMT: COMMON NORMALS: normocephalic HEAD & SCALP: normocephalic Eye: COMMON NORMALS: EOMs intact bilaterally Neck/C-Spine: COMMON NORMALS: full ROM and supple Resp: COMMON NORMALS: normal respiratory effort, No retractions and clear to auscultation bilaterally AUSCULTATION: clear to auscultation bilaterally Cardio: COMMON NORMALS: regular rate, regular rhythm, No gallops present (Cardio) and No murmurs present (Cardio) RATE: regular rate RHYTHM: r egular rhythm GI: COMMON NORMALS: Soft to palpation and non-tender PALPATION: Yes Soft to palpation Extremity: GENERAL: Yes normal exam except as noted Neuro: COMMON NORMALS: patient oriented x3 SENSORIUM/ORIENTATION: Yes alert Skin: NARRATIVE SKIN EXAM: Midline abdomen 3 cm incision and drainage that is packed and appears to be healing. Just superior to that incision there is a small area of redness with some induration. Course 2 Vital Signs: Vital signs: Vital Signs Temperature 97.7 F 06/21/24 16:04 Pulse Rate 64 04/14/24 19:30 Respiratory Rate 16 04/14/24 16:04 Blood Pressure 151/60 04/14/24 19:30 Pulse Oximetry 98 04/14/24 19:30 Oxygen Delivery Me thod Room Air 04/14/24 19:30 MDM - Skin/Abscess/Foreign Bdy Medicial Decision Making 83-year-old female presents emergency department for evaluation of lump and rash on her abdomen. Patient and her daughter were concerned that it was a new formation of abscess just above the previous abscess. On palpation the wound does not seem to be a drainable abscess. Diagnosis most likely cellulitis complicated by recent surgery. Discussed with the patient and her daughter discharging home on a different antibiotic as she just completed a round of Bactrim. They were in agreement with this plan. Additionally. Her urinalysis was negative for blood or infection. Patient's CBC significant for slight decrease in hemoglobin not concerning for significant bleed at this time. Patient was discharged home with her daughter in good condition. Lab Data 04/14/24 19:13 Laboratory Results WBC 8.57 10^3/uL (3.29-11.43) 04/14/24 19:13 RBC 3.57 10^6/uL (3.85-5.65) L 04/14/24 19:13 Hgb 10.30 g/dL (11.27-16.99) L 04/14/24 19:13 Hct 32.2 % (36-47) L 04/14/24 19:13 MCV 90.2 fl (85-98) 04/14/24 19:13 MCH 28.9 pg (27-33) 04/14/24 19:13 MCHC 32.0 g/dL (30-55) 04/14/24 19:13 RDW 13.8 % (12.1-15.1) 04/14/24 19:13 Plt Count 281 10^3/cmm (157-399) 04/14/24 19:13 MPV 8.5 fL (7.4-10.4) 04/14/24 19:13 Neut % (Auto) 41.5 % 04/14/24 19:13 Lymph % (Auto) 41.9 % 04/14/24 19:13 [place] % (Auto) 9.9 % 04/14/24 19:13 Eos % (Auto) 5.7 % 04/14/24 19:13 Baso % (Auto) 0.8 % 04/14/24 19:13 Neut # (Auto) 3.55 10^3/uL (1.8-7.7) 04/14/24 19:13 Lymph # (Auto) 3.6 10^3/uL (0.8-4.8) 04/14/24 19:13 [place] # (Auto) 0.9 10^3/uL (0.2-0.9) 04/14/24 19:13 Eos # (Auto) 0.5 10^3/uL (0.0-0.8) 04/14/24 19:13 Baso # (Auto) 0.1 10^3/uL (0.0-0.1) 04/14/24 19:13 Nucleated RBC % (auto) 0 % 04/14/24 19:13 Nucleated RBCs # 0.0 /100WBC 04/14/24 19:13 Urine Color Yellow (Yellow) 04/14/24 16:18 Urine Appearance Clear (CLEAR) 04/14/24 16:18 Urine pH 5 (5-7) 04/14/24 16:18 Ur Specific [place] 1.020 (1.005-1.030) 04/14/24 16:18 Urine Protein Trace (Negative) 04/14/24 16:18 Urine Glucose (UA) Norm (Normal) 04/14/24 16:18 Urine Ketones Negative (Negative) 04/14/24 16:18 Urine Blood Neg (Negative) 04/14/24 16:18 Urine Nitrate Negative (Negative) 04/14/24 16:18 Urine Bilirubin Neg (Negative) 04/14/24 16:18 Urine Urobilinogen Norm mg/dL (Negative) 04/14/24 16:18 Ur Leukocyte Esterase Negative (Negative) 04/14/24 16:18 Urine RBC None /hpf (0-2) 04/14/24 16:18 Urine WBC Rare /hpf (0-5) 04/14/24 16:18 Ur Squamous Epith Cells 0-4 /hpf (0-5) H 04/14/24 16:18 Amorphous Sediment Not Reportable 04/14/24 16:18 Urine Bacteria None /hpf (NONE) 04/14/24 16:18 Urine Mucus None /hpf 04/14/24 16:18 No radiology studies performed this visit Discharge Plan Discharge Patient Disposition: Home Clinical Impression: Cellulitis Qualifiers: Site of cellulitis: trunk Site of cellulitis of trunk: abdominal wall Qualified Code(s): L03.311 - Cellulitis of abdominal wall Condition: Stable Prescriptions: New doxycycline hyclate 100 mg capsule 100 mg PO BID 7 Days Qty: 14 0RF No Action enalapril maleate 10 mg tablet 10 mg PO QAM alendronate 70 mg tablet 70 mg PO Q7D Rx Instructions: on wednesday citalopram 20 mg tablet 20 mg PO QAM hydrochlorothiazide 50 mg tablet 50 mg PO QAM celecoxib [Celebrex] 200 mg capsule 200 mg PO QAM simvastatin 40 mg tablet 40 mg PO QPM Myrbetriq 50 mg tablet extended release 24 hr 50 mg PO BEDTIME betamethasone dipropionate 0.05 % cream 1 applic topical BID PRN (Reason: Rash) (DME) Toe Alignment Splint See Rx Instructions .Route .MEDSUPPLY Qty: 1 0RF Rx Instructions: As directed potassium chloride [Klor-Con M10] 10 mEq tablet,ER particles/crystals 10 meq PO QAM multivitamin Tablet 1 tab PO QPM triamcinolone acetonide 0.1 % ointment 1 applic topical BID PRN (Reason: unknown) Rx Instructions: Apply to affected area no more than two weeks per month. Not for face. mupirocin 2 % ointment 1 applic topical BID PRN (Reason: unknown) Discharge Orders: Discharge ED (Routine); Ordered 04/14/24 Ordered By: Angelo Ayala Referrals: Kvng Daniel MD [Primary Care Provider] - Discharge Diet: Advance as tolerated Discharge Activity: Increase activity as tolerated Patient Instructions: Opioid Safety, Pain Management Activity Restrictions/Additional Instructions: Please return to the emergency department with worsening signs of infection or abscess formation. Please follow-up with the surgeon next week. Coding Level of Care Code ED Driver Retraining Instructor for Terry Posey
[2024-04-14 19:18] LABS: Basophils # 0.1 10^3/uL (0.0-0.1); Basophils % 0.8 %; Eosinophils # 0.5 10^3/uL (0.0-0.8); Eosinophils % 5.7 %; Hematocrit 32.2 % (36-47); Lymphocytes # 3.6 10^3/uL (0.8-4.8); Lymphocytes % 41.9 %; Mean Corpuscular Hemoglobin 28.9 pg (27-33); Mean Corpuscular Volume 90.2 fl (85-98); Mean Platelet Volume 8.5 fL (7.4-10.4); Monocytes # 0.9 10^3/uL (0.2-0.9); Monocytes % 9.9 %; Neutrophils # 3.55 10^3/uL (1.8-7.7); Neutrophils % 41.5 %; Nucleated Red Blood Cells % 0 %; Platelet Count 281 10^3/cmm (157-399); Red Blood Count 3.57 10^6/uL (3.85-5.65); Red Cell Distribution Width 13.8 % (12.1-15.1); White Blood Count 8.57 10^3/uL (3.29-11.43)
[2024-04-14 19:30] VITALS: BP 151/60; PULSE 64; O2SAT 98
[2024-04-14 19:49] LABS: Add Urine Microscopic? YES; Bilirubin Urine Neg (Negative); Blood Urine Neg (Negative); Glucose Urine UA Norm (Normal); Ketones Urine Negative (Negative); Leukocyte Esterase Urine Negative (Negative); Nitrate Urine Negative (Negative); Protein Urine Trace (Negative); Urine Appearance Clear (CLEAR); Urine Color Yellow (Yellow); Urobilinogen Urine Norm (Negative); pH Urine 5 (5-7)
[2024-04-14 19:57] LABS: Squamous Epithelial Cell Urine 0-4 /hpf (0-5); WBC Urine RARE /hpf (0-5)
[2024-04-14 19:58] LABS: Add Urine Culture? No
[2024-04-14 20:30] VITALS: BP 159/65; PULSE 62; O2SAT 97
[2024-04-14 20:49] VITALS: BP 150/80; PULSE 63; O2SAT 98
--- NOTE | 2024-04-15 09:39 | PC.NURSE ---
This nurse was called by pt's family stating [facility], looks like the prescription was attempted to send, but not confirmed. this nurse contact pharmacist at [facility], [facility], and called in Doxycycline prescription listed in discharge.
== END 2024-04-14 20:49 | disposition home or self-care (01) ==
PROVIDERS: Emergency Provider General Practice; PCP Family Medicine
DX: L03.311 Cellulitis of abdominal wall (principal); E78.5 Hyperlipidemia, unspecified; I10 Essential (primary) hypertension
CPT/HCPCS: 36415; 81001; 85025; 99283

== ENCOUNTER → 2024-07-07 09:18 | Outpatient (BNVA) | payer MEDICARE, OTHER, MEDICAID, SELFPAY | PROVIDERS: PCP Family Medicine; Visit Provider Podiatrist Foot & Ankle Surgery | DX: L89.899 Pressure ulcer of other site, unspecified stage; M20.12 Hallux valgus (acquired), left foot; S90.822A Blister (nonthermal), left foot, initial encounter; S90.821A Blister (nonthermal), right foot, initial encounter; X58.XXXA Exposure to other specified factors, initial encounter | CPT/HCPCS: 10140 ==

== ENCOUNTER 2024-07-24 12:54 | Outpatient (CLI) | payer MEDICARE, OTHER, MEDICAID, SELFPAY ==
[2024-07-24 13:30] LABS: Estmated Average Glucose 111; Hemoglobin A1C 5.5 % (4.0-6.0)
== END 2024-07-24 12:55 | disposition home or self-care (01) ==
LOC: LAB 12:55
PROVIDERS: PCP Family Medicine; Visit Provider Family Medicine
DX: E11.00 Type 2 diabetes mellitus with hyperosmolarity without nonketotic hyperglycemic-hyperosmolar coma (NKHHC) (principal)
CPT/HCPCS: 83036

== ENCOUNTER → 2024-07-27 13:53 | Outpatient (BNVA) | payer MEDICARE, OTHER, MEDICAID, SELFPAY | PROVIDERS: PCP Family Medicine; Visit Provider Dermatology | DX: L30.9 Dermatitis, unspecified (principal); L81.4 Other melanin hyperpigmentation; L57.8 Other skin changes due to chronic exposure to nonionizing radiation; Z85.828 Personal history of other malignant neoplasm of skin | CPT/HCPCS: 11104; 11105; 99214 ==

== ENCOUNTER → 2024-07-28 10:02 | Outpatient (BNVA) | payer MEDICARE, OTHER, MEDICAID, SELFPAY | PROVIDERS: PCP Family Medicine; Visit Provider Podiatrist Foot & Ankle Surgery | DX: M20.12 Hallux valgus (acquired), left foot; R23.8 Other skin changes | CPT/HCPCS: 99213 ==

== ENCOUNTER → 2024-08-08 11:20 | Outpatient (BNVA) | payer MEDICARE, OTHER, MEDICAID, SELFPAY | PROVIDERS: PCP Family Medicine; Visit Provider Dermatology | DX: L13.8 Other specified bullous disorders (principal) | CPT/HCPCS: 99214 ==

== ENCOUNTER 2024-08-10 08:08 | Outpatient (CLI) | payer MEDICARE, OTHER, MEDICAID, SELFPAY ==
--- NOTE | 2024-08-10 08:14 | US_ITS ---
WS: [id number] ULTRASOUND BREAST RIGHT TECHNIQUE: Ultrasound right breast focused area of concern. CLINICAL INFORMATION: Cutaneous abscess COMPARISON: None. FINDINGS: Ultrasound RIGHT breast 4 o'clock position 4 cm from the nipple in the area of interest. No underlyin g suspicious abnormalities. No cystic or solid lesions. No evidence of abscess or drainable fluid col lection. Findings are benign. US/US breast RT limited* [id number] IMPRESSION: No suspicious findings.
== END 2024-08-10 08:09 | disposition home or self-care (01) ==
LOC: RAD 08:09
PROVIDERS: PCP Family Medicine; Visit Provider Family Medicine
DX: L02.91 Cutaneous abscess, unspecified (principal)
CPT/HCPCS: 76642; 99213

== ENCOUNTER → 2024-08-22 13:23 | Outpatient (BNVA) | payer MEDICARE, OTHER, MEDICAID, SELFPAY | PROVIDERS: PCP Family Medicine; Visit Provider Dermatology | DX: L13.8 Other specified bullous disorders (principal); Z85.828 Personal history of other malignant neoplasm of skin | CPT/HCPCS: 99214 ==

== ENCOUNTER → 2024-09-07 09:17 | Outpatient (BNVA) | payer MEDICARE, OTHER, MEDICAID, SELFPAY | PROVIDERS: PCP Family Medicine; Visit Provider Podiatrist Foot & Ankle Surgery | DX: M20.12 Hallux valgus (acquired), left foot | CPT/HCPCS: 99213 ==

== ENCOUNTER → 2024-09-28 13:07 | Outpatient (BNVA) | payer MEDICARE, OTHER, MEDICAID, SELFPAY | PROVIDERS: PCP Family Medicine; Visit Provider Dermatology | DX: L13.8 Other specified bullous disorders (principal) | CPT/HCPCS: 99214 ==

== ENCOUNTER 2024-11-05 10:58 | Emergency (ER) | payer MEDICARE, MEDICAID, SELFPAY ==
[2024-11-05] VITALS (7 sets, daily range): BP systolic 145–207; BP diastolic 56–124; PULSE 68–86; RESP 18; TEMP 36.6; O2SAT 97–99; BMI 32.3
--- NOTE | 2024-11-05 10:58 | XRR_ITS ---
PROCEDURE INFORMATION: Exam: XR Chest Exam date and time: 11/05/2024 1:38 PM Age: 84 years old Clinical indication: Other: Confusion TECHNIQUE: Imaging protocol: Radiologic exam of the chest. Views: 1 view. COMPARISON: CR XR chest 1V portable [id number] 02/06/2024 3:20 PM FINDINGS: Lungs: Left basilar atelectasis and/or scarring as seen on prior exam. Right basilar atelectasis. No focal consolidation. Pleural spaces: No significant pleural effusion. Heart/Mediastinum: The cardiomediastinal silhouette is stable. Bones/joints: Unremarkable. XR/XR chest 1V portable [id number] IMPRESSION: No acute cardiopulmonary disease.
--- NOTE | 2024-11-05 10:59 | ECG_ITS ---
[facility] 2024-[facility]05 Pat Name: Irma Lyn Department: Room: Gender: Female [employer]: : 1940 Requested By: Merrick Keenan Order Number: [id number] Wesley MD: Babak Dominguez M.D. Measurements Intervals [place] Rate: 66 P: -10 HI: 133 QRS: -5 QRSD: 101 T: 48 QT: 424 QTc: 446 Interpretive Statements SINUS RHYTHM WITH OCCASIONAL SUPRAVENTRICULAR PREMATURE COMPLEXES POSSIBLE ANTERIOR MYOCARDIAL INFARCTION , OF INDETERMINATE AGE [30 ms Q WAVE IN V3/V4, OR R < 0.2 mV IN V4] Compared to ECG 02/06/2024 11:42:36 Myocardial infarct finding now present T-wave abnormality no longer present Electronically Signed On 11-07-2024 23:47:31 CERT OCCUPATIONAL THERAPY ASST by Babak Dominguez M.D. [email or web address]
[2024-11-05 11:44] LABS: Basophils # 0.1 10^3/uL (0.0-0.1); Basophils % 1.1 %; Eosinophils # 0.7 10^3/uL (0.0-0.8); Eosinophils % 7.4 %; Hematocrit 39.7 % (36-47); Lymphocytes # 1.9 10^3/uL (0.8-4.8); Lymphocytes % 19.9 %; Mean Corpuscular Hemoglobin 31.1 pg (27-33); Mean Corpuscular Volume 94.3 fl (85-98); Mean Platelet Volume 8.7 fL (7.4-10.4); Monocytes # 0.8 10^3/uL (0.2-0.9); Neutrophils # 6.01 10^3/uL (1.8-7.7); Neutrophils % 63.4 %; Nucleated Red Blood Cells % 0 %; Platelet Count 286 10^3/cmm (157-399); Red Blood Count 4.21 10^6/uL (3.85-5.65); Red Cell Distribution Width 14.2 % (12.1-15.1); White Blood Count 9.47 10^3/uL (3.29-11.43)
[2024-11-05 12:08] LABS: Alanine Aminotransferase 13 U/L (0-33); Albumin Level 3.8 g/dL (3.5-5.2); Alkaline Phosphatase 73 U/L (35-105); Anion Gap 18.8 (5-19); Aspartate Amino Transferase 22 U/L (0-32); Blood Urea Nitrogen 22 mg/dL (8-23); Calcium 9.3 mg/dL (8.5-10.5); Carbon Dioxide 22 mmol/L (22-29); Chloride 100 mmol/L (98-107); Creatinine Clr Calc Pharmacy 57.0634; Globulin 2.7 g/dL (1.3-4.6); Glucose 108 mg/dL (65-115); Osmolality Calculated 288 mOsm/kg (285-295); Potassium 3.8 mmol/L (3.5-5.1); Sodium 137 mmol/L (136-145); Thyroid Stimulating Hormone 1.42 uIU/mL (0.27-4.20); Total Bilirubin 0.4 mg/dL (0.15-1.2); Total Protein 6.5 g/dL (6.6-8.7)
[2024-11-05 13:29] LABS: Bilirubin Urine Negative (Negative); Blood Urine Negative (Negative); Glucose Urine UA Negative (Normal); Ketones Urine Negative (Negative); Leukocyte Esterase Urine 1+ (Negative); Nitrate Urine Negative (Negative); Protein Urine Trace (Negative); Specific Gravity, Urine 1.023 (1.005-1.030); Urine Appearance Clear (CLEAR); Urine Color Yellow (Yellow); Urobilinogen Urine 0.2 mg/dL (Negative); pH Urine 5.5 (5-7)
[2024-11-05 13:34] LABS: Add Urine Microscopic? YES; Bacteria Urine None Seen /hpf; Hyaline Casts Urine 1.21 /lpf; RBC Urine 0-2 /hpf (0-2); Squamous Epithelial Cell Urine 0-5 /hpf (0-5)
--- NOTE | 2024-11-05 14:57 | ED_ITS ---
HPI - Altered Mental Status 2 General: Chief Complaint: Altered Mental Status Stated Complaint: confused Time Seen by Provider: 11/05/24 13:34 History of Present Illness: 84-year-old female who lives with her si ster presents emergency department along with her son and [id number]. They state that this morning she had an episode of agitation and apparent delirium. She yelled at her sister which is very atypical of her. After a while she seemed to become reoriented and has been fine ever since then. She does have age-related cognitive changes. They suspect she has dementia but she has not been formally diagnosed. Over time is gotten slightly worse. She did have a UTI about a month ago and they were aware that acute health changes can cause states of delirium and wanted her to be evaluated. There has not been any falls or injuries. 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 She has not had any medication additions or changes. In the emergency department she is alert, oriented fully, follows commands, and can even do some difficult tasks such as spelling the word world forward and backwards. There is not been any fever, chills, strokelike symptoms, dysuria, abdominal pain, shortness of breath, seizures. Related Data Home Medications Medication Instructions Recorded Confirmed alendronate 70 mg tablet 70 mg PO Q7D 11/04/22 09/07/24 betamethasone dipropionate 0.05 % 1 applic topical BID PRN Rash 11/04/22 09/07/24 topical cream celecoxib 200 mg capsule (Celebrex) 200 mg PO QAM 11/04/22 09/07/24 citalopram 20 mg tablet 20 mg PO QAM 11/04/22 09/07/24 enalapril maleate 10 mg tablet 10 mg PO QAM 11/04/22 09/07/24 hydrochlorothiazide 50 mg tablet 50 mg PO QAM 11/04/22 09/07/24 mirabegron 50 mg tablet,extended 50 mg PO BEDTIME 11/04/22 09/07/24 release 24 hr (Myrbetriq) simvastatin 40 mg tablet 40 mg PO QPM 11/04/22 09/07/24 multivitamin 1 tab PO QPM 02/06/24 09/07/24 potassium chloride 10 mEq 10 meq PO QAM 04/14/24 11/14/24 tablet,extended release(part/cryst) (Klor-Con M) triamcinolone acetonide 0.1 % 1 applic topical BID PRN unknown 02/06/24 09/07/24 topical ointment doxycycline hyclate 100 mg capsule 100 mg PO DAILY 09/07/24 09/07/24 Previous Rx's Medication Instructions Recorded Toe Alignment Splint #1 ea 02/19/23 amoxicillin 500 mg capsule 500 mg PO TID #30 caps 08/02/24 mupirocin 2 % topical ointment 1 applic topical BID PRN unknown 08/10/24 #22 grams Allergies Allergy/AdvReac Type Severity Reaction Status Date / Time ibuprofen [From Motrin] Allergy Hives Verified 11/05/24 11:50 Review of Systems 2 General: Reports: 10 or more systems reviewed and unremarkable except in HPI and below Const: Denies: fever(s), chills or body aches Eyes: Denies: change in vision ENMT: Denies: throat pain Card: Denies: chest pain, edema or syncope Resp: Denies: dyspnea or productive cough GI: Denies: abdominal pain, nausea, vomiting or diarrhea : Denies: flank pain, dysuria or urinary frequency Musc: Denies: neck pain, back pain, extremity pain or extremity swelling Skin/Breast: Denies: rash or erythema Neuro: Denies: headache(s), numbness in extremities, weakness in extremities, lack of coordination or difficulty walking PFSH ED 2 PFSH: Medical History Hyperlipidemia Hypertension Surgical History No pertinent past surgical history Social History Smoking and tobacco/nicotine status: never used tobacco/nicotine Physical Exam 2 Narrative: Awake, alert, sitting up, oriented to self, day, month, year, and answers all my questions appropriately. She spells the word world forwards and backwards without assistance. Const: COMMON NORMALS: patient oriented x3, no limitations, alert and well nourished EXAM LIMITATIONS: no altered mental status HENMT: COMMON NORMALS: normocephalic, atraumatic and external ears normal H EAD & SCALP: normocephalic and atraumatic EXTERNAL EAR: Yes external ears normal MOUTH: no muffled voice Eye: COMMON NORMALS: EOMs intact bilaterally, conjunctivae normal and no scleral icterus CONJUNCTIVA: Yes conjunctivae normal Neck/C-Spine: COMMON NORMALS: no JVD GENERAL: Yes normal visual inspection and Yes trachea midline Resp: COMMON NORMALS: normal respiratory effort, No use of accessory muscles and clear to auscultation bilaterally AUSCULTATION: clear to auscultation bilaterally Cardio: COMMON NORMALS: no JVD, regular rate and regular rhythm RATE: r egular rate RHYTHM: regular rhythm GI: COMMON NORMALS: Soft to palpation and non-tender PALPATION: Yes Soft to palpation and No Guarding due to palpation present (GI) Extremity: COMMON NORMALS: normal to inspection Neuro: COMMON NORMALS: patient oriented x3, CN's II-XII intact bilaterally, moves all extremities, no focal motor deficits and no sensory deficits noted SENSORIUM/ORIENTATION: Yes alert SPEECH: speech normal Psych: COMMON NORMALS: mental status grossly normal, Normal thought process present, cooperative, normal affect and speech normal SPEECH: Yes normal speech THOUGHT PROCESS: Normal thought process present Skin: COMMON NORMALS: no rashes or lesions noted, turgor normal and no jaundice GENERAL SKIN EXAM: no rashes or lesions noted and turgor normal Course 2 Vital Signs: Vital signs: Vital Signs Temperature 97.8 F 11/05/24 11:44 Pulse Rate 69 11/05/24 11:44 Respiratory Rate 18 11/05/24 11:44 Blood Pressure 171/82 11/05/24 11:44 Pulse Oximetry 99 11/05/24 11:44 Oxygen Delivery Me thod Room Air 11/05/24 11:44 MDM - Altered Mental Status Medical Decision Making Sounds like the patient had a spell of disorientation and agitation this morning. She had already had breakfast so hypoglycemia is unlikely. We did not find any focal neurologic deficits on exam here and there was none reported by family. Differential diagnosis includes but is not limited to UTI, electrolyte disturbance, acid-base disturbance, glycemic disturbance, TIA, dementia, medication error, infection, other. Chest x-ray was performed and reviewed. No new findings. Some calcified nodule in the left lower lung. Labs and urine were reviewed. Trace leukocyte esterase and a few white blood cells with no bacteria. Urine will be cultured. The patient remains at her baseline at this time. At this point I do not see any further indication for emergent workup or admission. Patient and family in agreement with plan. We will continue to monitor. Patient may benefit from neurocognitive evaluation by neurology for formal evaluation of cognitive decline that has been observed by family. Lab Data 11/05/24 11:28 11/05/24 11:28 Radiology Impressions Chest X-Ray 11/05/24 10:58 IMPRESSION: No acute cardiopulmonary disease. Laboratory Results WBC 9.47 10^3/uL (3.29-11.43) 11/05/24 11:28 RBC 4.21 10^6/uL (3.85-5.65) 11/05/24 11:28 Hgb 13.10 g/dL (11.27-16.99) 11/05/24 11:28 Hct 39.7 % (36-47) 11/05/24 11:28 MCV 94.3 fl (85-98) 11/05/24 11:28 MCH 31.1 pg (27-33) 11/05/24 11:28 MCHC 33.0 g/dL (30-55) 11/05/24 11:28 RDW 14.2 % (12.1-15.1) 11/05/24 11:28 Plt Count 286 10^3/cmm (157-399) 11/05/24 11:28 MPV 8.7 fL (7.4-10.4) 11/05/24 11:28 Neut % (Auto) 63.4 % 11/05/24 11:28 Lymph % (Auto) 19.9 % 11/05/24 11:28 [place] % (Auto) 8.0 % 11/05/24 11:28 Eos % (Auto) 7.4 % 11/05/24 11:28 Baso % (Auto) 1.1 % 11/05/24 11:28 Neut # (Auto) 6.01 10^3/uL (1.8-7.7) 11/05/24 11:28 Lymph # (Auto) 1.9 10^3/uL (0.8-4.8) 11/05/24 11:28 [place] # (Auto) 0.8 10^3/uL (0.2-0.9) 11/05/24 11:28 Eos # (Auto) 0.7 10^3/uL (0.0-0.8) 11/05/24 11:28 Baso # (Auto) 0.1 10^3/uL (0.0-0.1) 11/05/24 11:28 Nucleated RBC % (auto) 0 % 11/05/24 11:28 Nucleated RBCs # 0.0 /100WBC 11/05/24 11:28 Sodium 137 mmol/L (136-145) 11/05/24 11:28 Potassium 3.8 mmol/L (3.5-5.1) 11/05/24 11:28 Chloride 100 mmol/L (98-107) 11/05/24 11:28 Carbon Dioxide 22 mmol/L (22-29) 11/05/24 11:28 Anion Gap 18.8 (5-19) 11/05/24 11:28 BUN 22 mg/dL (8-23) 11/05/24 11:28 Creatinine 0.8 mg/dL (0.5-0.9) 11/05/24 11:28 GFR Calculation Not Reportable 11/05/24 11:28 Glucose 108 mg/dL (65-115) 11/05/24 11:28 Calculated Osmolality 288 mOsm/kg (285-295) 11/05/24 11:28 Calcium 9.3 mg/dL (8.5-10.5) 11/05/24 11:28 Total Bilirubin 0.4 mg/dL (0.15-1.2) 11/05/24 11:28 AST 22 U/L (0-32) 11/05/24 11:28 ALT 13 U/L (0-33) 11/05/24 11:28 Alkaline Phosphatase 73 U/L (35-105) 11/05/24 11:28 Total Protein 6.5 g/dL (6.6-8.7) L 11/05/24 11:28 Albumin 3.8 g/dL (3.5-5.2) 11/05/24 11:28 Globulin 2.7 g/dL (1.3-4.6) 11/05/24 11:28 TSH 1.42 uIU/mL (0.27-4.20) 11/05/24 11:28 Urine Color Yellow (Yellow) 11/05/24 13:22 Urine Appearance Clear (CLEAR) 11/05/24 13:22 Urine pH 5.5 (5-7) 11/05/24 13:22 Ur Specific Criders 1.023 (1.005-1.030) 11/05/24 13:22 Urine Protein Trace (Negative) A 11/05/24 13:22 Urine Glucose (UA) Negative (Normal) 11/05/24 13:22 Urine Ketones Negative (Negative) 11/05/24 13:22 Urine Blood Negative (Negative) 11/05/24 13:22 Urine Nitrate Negative (Negative) 11/05/24 13:22 Urine Bilirubin Negative (Negative) 11/05/24 13:22 Urine Urobilinogen 0.2 mg/dL (Negative) 11/05/24 13:22 Ur Leukocyte Esterase 1+ (Negative) A 11/05/24 13:22 Urine RBC 0-2 /hpf (0-2) 11/05/24 13:22 Urine WBC 6-10 /hpf (0-5) 11/05/24 13:22 Ur Squamous Epith Cells 0-5 /hpf (0-5) 11/05/24 13:22 Amorphous Sediment Not Reportable 11/05/24 13:22 Urine Bacteria None seen /hpf (NONE) 11/05/24 13:22 Hyaline Casts 1.21 /lpf 11/05/24 13:22 All radiology interpretation(s) finalized by discharge Discharge Plan Discharge Condition: Stable Prescriptions: No Action enalapril maleate 10 mg tablet 10 mg PO QAM alendronate 70 mg tablet 70 mg PO Q7D Rx Instructions: on wednesday citalopram 20 mg tablet 20 mg PO QAM hydrochlorothiazide 50 mg tablet 50 mg PO QAM celecoxib [Celebrex] 200 mg capsule 200 mg PO QAM simvastatin 40 mg tablet 40 mg PO QPM Myrbetriq 50 mg tablet extended release 24 hr 50 mg PO BEDTIME betamethasone dipropionate 0.05 % cream 1 applic topical BID PRN (Reason: Rash) (DME) Toe Alignment Splint See Rx Instructions .Route .MEDSUPPLY Qty: 1 0RF Rx Instructions: As directed doxycycline hyclate 100 mg capsule 100 mg PO DAILY mupirocin 2 % ointment 1 applic topical BID PRN (Reason: unknown) Qty: 22 0RF amoxicillin 500 mg capsule 500 mg PO TID Qty: 30 0RF potassium chloride [Klor-Con M10] 10 mEq tablet,ER particles/crystals 10 meq PO QAM multivitamin Tablet 1 tab PO QPM triamcinolone acetonide 0.1 % ointment 1 applic topical BID PRN (Reason: unknown) Rx Instructions: Apply to affected area no more than two weeks per month. Not for face. Referrals: Kvng Daniel MD [Primary Care Provider] - Patient Instructions: Altered Mental Status (ED) Coding Level of Care Code ED Mold [employer] P[employer]her for Terry Posey
== END 2024-11-05 15:42 | disposition home or self-care (01) ==
PROVIDERS: Emergency Medicine; Emergency Provider Emergency Medicine; PCP Family Medicine
DX: R41.0 Disorientation, unspecified (principal)
CPT/HCPCS: 36415; 71045; 80053; 81001; 84443; 85025; 93005; 99285

== ENCOUNTER → 2024-11-07 09:00 | Outpatient (BNVA) | payer MEDICARE, MEDICAID, OTHER, SELFPAY | PROVIDERS: PCP Family Medicine; Visit Provider Podiatrist Foot & Ankle Surgery | DX: L12.0 Bullous pemphigoid (principal); M20.12 Hallux valgus (acquired), left foot | CPT/HCPCS: 99213; A6219 ==

== ENCOUNTER → 2024-11-30 13:21 | Outpatient (BNVA) | payer MEDICARE, MEDICAID, SELFPAY | PROVIDERS: PCP Family Medicine; Visit Provider Dermatology | DX: L13.8 Other specified bullous disorders (principal) | CPT/HCPCS: 99214 ==

== ENCOUNTER 2024-12-07 12:59 | Outpatient (CLI) | payer MEDICARE, MEDICAID, SELFPAY ==
--- NOTE | 2024-12-07 13:30 | CTR_ITS ---
PROCEDURE INFORMATION: Exam: CT Abdomen And Pelvis Without And With Contrast Exam date and time: 12/07/2024 1:27 PM Age: 84 years old Clinical indication: Other: Chronic UTI; Prior surgery; Surgery date: 6+ months; HX of colon cancer TECHNIQUE: Imaging protocol: Computed tomography of the abdomen and pelvis without and with contrast. 3D rendering (Not supervised by radiologist): MIP and/or 3D reconstructed images were created by the technologist. Radiation optimization: All CT scans at this facility use at least one of these dose optimization techniques: automated exposure control; mA and/or kV adjustment per patient size (includes targeted exams where dose is matched to clinical indication); or iterative reconstruction. Contrast material: 1934.20; Contrast volume: 100 ml; Contrast route: INTRAVENOUS (IV); COMPARISON: CT abdomen pelvis w con* [id number] 02/27/2024 5:06 AM RADIATION DOSE METRICS: Total DLP (mGy-cm): 1934.2 FINDINGS: Lungs: Lung bases are clear as visualized. Diaphragm: There is a small to moderate-sized hiatal hernia. Liver: There is mild fatty infiltration of the liver. The liver is otherwise normal. Gallbladder and biliary ducts: There are gallstones within the gallbladder. No pericholecystic inflammatory changes noted. Pancreas: Normal. No ductal dilation. Spleen: Normal. No splenomegaly. Adrenal glands: Normal. No mass. Kidneys and ureters: There are renovascular calcifications bilaterally. No definite renal calculi are identified. No hydronephrosis is noted. There is a small benign-appearing renal cyst on the right. There is moderate atrophy of the left kidney. No definite abnormalities are noted regarding a duplicated renal collecting system and duplicated ureters on the right. No abnormalities are noted involving a single ureter on the left. No definite abnormalities noted with regards to the urinary bladder. Stomach and bowel: There are postoperative changes involving the colon and small bowel loops. No dilated loops of large or small bowel is appreciated. No bowel wall thickening is noted. Appendix: The appendix is not definitely identified. Intraperitoneal space: Unremarkable. No free air. No significant fluid collection. Vasculature: The aorta is normal in caliber. There is calcified plaque involving the aorta and its branch vessels. There appears to be occlusion/near occlusion of the SMA with soft plaque. This is unchanged when compared to prior exam. Lymph nodes: Unremarkable. No enlarged lymph nodes. Urinary bladder: No definite abnormalities noted with regards to the urinary bladder. Reproductive: There is an enhancing nodule within the uterus measuring 12 mm in size. This was likely present on prior exam. This could represent a fibroid or polyp. Other etiologies can not be excluded. Ultrasound may be of benefit for further evaluation. This can be performed on a nonemergent basis. No abnormalities are otherwise noted involving the reproductive organs. Bones/joints: Unremarkable. No acute fracture. Soft tissues: There is abdominal wall hernia defect distal to the umbilicus. Small bowel loops extend through this hernia defect without definite evidence of obstruction or wall thickening. There is a small fat filled hernia defect proximal to the umbilicus. CT/CT abdomen pelvis wo/w [id number] IMPRESSION: 1. Atrophic left kidney. No definite acute findings are otherwise noted with regards to the kidneys, ureters or bladder. 2. Lower anterior abdominal wall hernia defect filled with small bowel loops. 3. Small enhancing nodule involving the central aspect of the uterus. Nonemergent ultrasound may add additional information. Please note that this was likely present on prior exam from 02/27/2024. 4. 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 This is unchanged when compared to prior exam. 5. Cholelithiasis. 6. Please see above comments for additional details. COMMENTS: Consistent with the [employer]'s Incidental Findings Committee white paper (J Am Mary Radiol 2018): Any incidental renal lesion less than 1 cm or classified as too small to characterize, or any incidental cystic renal lesion characterized as simple-appearing, is likely benign. No follow-up imaging is recommended for these lesions per consensus recommendations based on imaging criteria.
[2024-12-07] MEDS: iohexol 350 mg/mL 500 mL Btl (per mL) IV (13:39)
== END 2024-12-07 13:00 | disposition home or self-care (01) ==
PROVIDERS: PCP Family Medicine; Visit Provider Nurse Practitioner Family
DX: N39.0 Urinary tract infection, site not specified (principal); N26.1 Atrophy of kidney (terminal); K43.9 Ventral hernia without obstruction or gangrene; R93.89 Abnormal findings on diagnostic imaging of other specified body structures; I70.8 Atherosclerosis of other arteries; K80.20 Calculus of gallbladder without cholecystitis without obstruction; K44.9 Diaphragmatic hernia without obstruction or gangrene; K76.0 Fatty (change of) liver, not elsewhere classified; N28.89 Other specified disorders of kidney and ureter; Z98.890 Other specified postprocedural states; I70.0 Atherosclerosis of aorta; K42.9 Umbilical hernia without obstruction or gangrene
CPT/HCPCS: 74178

== ENCOUNTER → 2025-01-30 08:20 | Outpatient (BNVA) | payer MEDICARE, MEDICAID, SELFPAY | PROVIDERS: PCP Family Medicine; Visit Provider Dermatology | DX: L13.8 Other specified bullous disorders (principal); L72.0 Epidermal cyst; L85.3 Xerosis cutis | CPT/HCPCS: 99214 ==

== ENCOUNTER → 2025-03-07 08:34 | Outpatient (BNVA) | payer MEDICARE, MEDICAID, SELFPAY | PROVIDERS: PCP Family Medicine; Visit Provider Psychiatry & Neurology Neurology | DX: R41.3 Other amnesia (principal); E55.9 Vitamin D deficiency, unspecified | CPT/HCPCS: 36415; 82233; 82234; 82306; 82542; 82607; 82746; 83520; 83735; 83921; 84439; 84481; 99203 ==

== ENCOUNTER 2025-03-11 10:33 | Emergency (ER) | payer MEDICARE, MEDICAID, SELFPAY ==
[2025-03-11] VITALS (9 sets, daily range): BP systolic 149–196; BP diastolic 62–82; PULSE 66–76; RESP 16; TEMP 36.3; O2SAT 93–98; BMI 31.2
--- NOTE | 2025-03-11 10:34 | XRR_ITS ---
PROCEDURE INFORMATION: Exam: XR Chest Exam date and time: 03/11/2025 11:11 AM Age: 84 years old Clinical indication: Other: AMS; Additional info: Confusion TECHNIQUE: Imaging protocol: Radiologic exam of the chest. Views: 1 view. COMPARISON: CR XR chest 1V portable [id number] 11/05/2024 1:38 PM FINDINGS: Lungs: Unremarkable. No consolidation. Pleural spaces: Unremarkable. No pleural effusion. No pneumothorax. Heart/Mediastinum: Unremarkable. No cardiomegaly. Bones/joints: Unremarkable. XR/XR chest 1V portable [id number] IMPRESSION: No acute findings.
[2025-03-11 11:40] LABS: Basophils % 0.7 %; Eosinophils # 0.1 10^3/uL (0.0-0.8); Eosinophils % 1.9 %; Hematocrit 35.5 % (36-47); Lymphocytes # 1.6 10^3/uL (0.8-4.8); Lymphocytes % 27.7 %; Mean Corpuscular HGB Conc 34.4 g/dL (30-55); Mean Corpuscular Hemoglobin 31.8 pg (27-33); Mean Corpuscular Volume 92.4 fl (85-98); Mean Platelet Volume 8.4 fL (7.4-10.4); Monocytes # 0.5 10^3/uL (0.2-0.9); Monocytes % 8.1 %; Neutrophils # 3.55 10^3/uL (1.8-7.7); Neutrophils % 61.4 %; Nucleated Red Blood Cells % 0 %; Platelet Count 232 10^3/cmm (157-399); Red Blood Count 3.84 10^6/uL (3.85-5.65); Red Cell Distribution Width 12.9 % (12.1-15.1); White Blood Count 5.78 10^3/uL (3.29-11.43)
--- NOTE | 2025-03-11 11:46 | ECG_ITS ---
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 Measurements Intervals [place] Rate: 64 P: -7 UT: 137 QRS: -18 QRSD: 100 T: 38 QT: 467 QTc: 485 Interpretive Statements SINUS RHYTHM POSSIBLE ANTERIOR MYOCARDIAL INFARCTION , OF INDETERMINATE AGE [30 ms Q WAVE IN V3/V4, OR R < 0.2 mV IN V4] Compared to ECG 11/05/2024 11:52:39 No significant changes Electronically Signed On 03-11-2025 12:26:59 CDT by Cuong Pa M.D. [id number] [id number]
[2025-03-11 11:47] LABS: Bacteria Urine Trace /hpf; Hyaline Casts Urine 1.65 /lpf; Squamous Epithelial Cell Urine 0-5 /hpf (0-5); WBC Urine 0-5 /hpf (0-5)
[2025-03-11 11:49] LABS: Add Urine Microscopic? YES; Bilirubin Urine Neg (Negative); Blood Urine Neg (Negative); Glucose Urine UA Norm (Normal); Ketones Urine Negative (Negative); Leukocyte Esterase Urine Negative (Negative); Nitrate Urine Negative (Negative); Protein Urine Neg (Negative); Urine Appearance Clear (CLEAR); Urine Color Yellow (Yellow); Urobilinogen Urine Neg (Negative); pH Urine 8 (5-7)
--- NOTE | 2025-03-11 11:54 | W.ED.AMS ---
HPI - Altered Mental Status General: Chief Complaint: Altered Mental Status Stated Complaint: confusion /weakness Time Seen by Provider: 03/11/25 11:00 History of Present Illness: Irma Lyn, a woman with a history of a similar episode 2-3 months ago, presents to the emergency department with acute confusion and weakness. The patient reports feeling not sure and states she never felt like this before. Ms. Lyn experienced a period of confusion where she didn't know who she was or where she was. While the patient states she wasn't completely out of it, there were moments when she wasn't sure of her identity or location. The duration of this episode is unclear, but the patient indicates that it hadn't all gone away at the time of the visit. Associated with the confusion, Ms. Lyn reports feeling real weak all over her body, to the extent that she was afraid to try to get up and walk. According to the patient's sister, who was present, Ms. Lyn exhibited unusual behavior before coming to the hospital. She was asking about her car keys and where her car was, despite not having owned a car for over a year. The sister also mentions that during a previous episode 2-3 months ago, Ms. Lyn was agitated and yelled at her sister, which was out of character. Ms. Lyn recently saw a neurologist, Dr. Patiño, on Wednesday. Following that visit, she started a new medication the night before this ED presentation, though she doesn't believe it's related to her current symptoms. The patient has upcoming neurology tests scheduled, including an EEG on Wednesday and other tests on Wednesday. Related Data Home Medications ?Medication ?Instructions ?Recorded ?Confirmed alendronate 70 mg tablet 70 mg PO Q7D 11/04/22 03/07/25 betamethasone dipropionate 0.05 % 1 applic topical BID PRN Rash 11/04/22 03/07/25 topical cream celecoxib 200 mg capsule (Celebrex) 200 mg PO QAM 11/04/22 03/07/25 citalopram 20 mg tablet 20 mg PO QAM 11/04/22 03/07/25 enalapril maleate 10 mg tablet 10 mg PO QAM 11/04/22 03/07/25 hydrochlorothiazide 50 mg tablet 50 mg PO QAM 11/04/22 03/07/25 mirabegron 50 mg tablet,extended 50 mg PO BEDTIME 11/04/22 03/07/25 release 24 hr (Myrbetriq) simvastatin 40 mg tablet 40 mg PO QPM 11/04/22 03/07/25 multivitamin 1 tab PO QPM 02/06/24 03/07/25 potassium chloride 10 mEq 10 meq PO QAM 02/06/24 03/07/25 tablet,extended release(part/cryst) (Klor-Con M) doxycycline hyclate 100 mg capsule 100 mg PO DAILY 09/07/24 03/07/25 solifenacin 5 mg tablet (Vesicare) 5 mg PO DAILY 03/07/25 03/07/25 Previous Rx's ?Medication ?Instructions ?Recorded Toe Alignment Splint #1 ea 02/19/23 mupirocin 2 % topical ointment 1 applic topical BID PRN unknown 08/10/24 #22 grams clobetasol 0.05 % topical gel 1 applic topical BID 2 weeks #15 11/07/24 grams triamcinolone acetonide 0.1 % 1 applic topical BID PRN unknown 11/14/24 topical ointment #80 grams cholecalciferol (vitamin D3) 1,250 50,000 unit PO Q7D #12 caps 03/07/25 mcg (50,000 unit) capsule Allergies Allergy/AdvReac Type Severity Reaction Status Date / Time ibuprofen (From Motrin) Allergy Hives Verified 03/07/25 08:46 Review of Systems General: Reports: 10 or more systems reviewed and unremarkable except in HPI and below PFSH ED PFSH: Medical History Hyperlipidemia Hypertension Surgical History No pertinent past surgical history Social History Smoking and tobacco/nicotine status: never used tobacco/nicotine Physical Exam Const: COMMON NORMALS: no acute distress, patient oriented x3, healthy appearing, alert and well nourished HENMT: COMMON NORMALS: normocephalic HEAD & SCALP: normocephalic Eye: COMMON NORMALS: EOMs intact bilaterally Neck/C-Spine: COMMON NORMALS: full ROM and supple Resp: COMMON NORMALS: normal respiratory effort, No retractions and clear to auscultation bilaterally AUSCULTATION: clear to auscultation bilaterally Cardio: COMMON NORMALS: regular rate, regular rhythm, No gallops present (Cardio) and No murmurs present (Cardio) RATE: regular rate RHYTHM: regular rhythm GI: COMMON NORMALS: Soft to palpation and non-tender PALPATION: Yes Soft to palpation Extremity: GENERAL: Yes normal exam except as noted Neuro: COMMON NORMALS: patient oriented x3 SENSORIUM/ORIENTATION: Yes alert CRANIAL NERVES: Yes CN normal except as noted MOTOR EXAM: 5/5 motor strength present throughout, Pronator motor function not present, no tremor noted and Motor abnormalities not present Skin: COMMON NORMALS: no rashes or lesions noted GENERAL SKIN EXAM: no rashes or lesions noted Course Vital Signs: Vital signs: Vital Signs Temperature 97.4 F L 03/11/25 10:49 Pulse Rate 68 03/11/25 15:00 Respiratory Rate 16 03/11/25 10:49 Blood Pressure 167/74 03/11/25 15:00 Pulse Oximetry 93 03/11/25 15:00 Oxygen Delivery Me thod Room Air 03/11/25 15:00 MDM - Altered Mental Status Medical Decision Making 84-year-old female presents to the emergency department for evaluation after an episode of confusion this morning. Upon presenting to the emergency department the episode had resolved. She had episode once previously. She was evaluated without a diagnosis. Based on today's evaluation she does have low sodium, but this is not severe enough to be causing the altered mental status. Encouraged patient to follow-up with her primary care physician for further management. She is scheduled to see neurology on Wednesday. She has several test scheduled in this next week. Return precautions were discussed and the patient was discharged home in stable condition. Lab Data 03/11/25 11:34 03/11/25 11:34 Laboratory Results WBC 5.78 10^3/uL (3.29-11.43) 03/11/25 11:34 RBC 3.84 10^6/uL (3.85-5.65) L 03/11/25 11:34 Hgb 12.20 g/dL (11.27-16.99) 03/11/25 11:34 Hct 35.5 % (36-47) L 03/11/25 11:34 MCV 92.4 fl (85-98) 03/11/25 11:34 MCH 31.8 pg (27-33) 03/11/25 11:34 MCHC 34.4 g/dL (30-55) 03/11/25 11:34 RDW 12.9 % (12.1-15.1) 03/11/25 11:34 Plt Count 232 10^3/cmm (157-399) 03/11/25 11:34 MPV 8.4 fL (7.4-10.4) 03/11/25 11:34 Neut % (Auto) 61.4 % 03/11/25 11:34 Lymph % (Auto) 27.7 % 03/11/25 11:34 [place] % (Auto) 8.1 % 03/11/25 11:34 Eos % (Auto) 1.9 % 03/11/25 11:34 Baso % (Auto) 0.7 % 03/11/25 11:34 Neut # (Auto) 3.55 10^3/uL (1.8-7.7) 03/11/25 11:34 Lymph # (Auto) 1.6 10^3/uL (0.8-4.8) 03/11/25 11:34 [place] # (Auto) 0.5 10^3/uL (0.2-0.9) 03/11/25 11:34 Eos # (Auto) 0.1 10^3/uL (0.0-0.8) 03/11/25 11:34 Baso # (Auto) 0.0 10^3/uL (0.0-0.1) 03/11/25 11:34 Nucleated RBC % (auto) 0 % 03/11/25 11:34 Nucleated RBCs # 0.0 /100WBC 03/11/25 11:34 Sodium 129 mmol/L (136-145) L 03/11/25 11:34 Potassium 3.9 mmol/L (3.5-5.1) 03/11/25 11:34 Chloride 94 mmol/L (98-107) L 03/11/25 11:34 Carbon Dioxide 19 mmol/L (22-29) L 03/11/25 11:34 Anion Gap 19.9 (5-19) H 03/11/25 11:34 BUN 17 mg/dL (8-23) 03/11/25 11:34 Creatinine 0.9 mg/dL (0.5-0.9) 03/11/25 11:34 GFR Calculation Not Reportable 03/11/25 11:34 Glucose 103 mg/dL (65-115) 03/11/25 11:34 Calculated Osmolality 270 mOsm/kg (285-295) L 03/11/25 11:34 Calcium 9.3 mg/dL (8.5-10.5) 03/11/25 11:34 Total Bilirubin 0.8 mg/dL (0.15-1.2) 03/11/25 11:34 AST 21 U/L (0-32) 03/11/25 11:34 ALT 13 U/L (0-33) 03/11/25 11:34 Alkaline Phosphatase 60 U/L (35-105) 03/11/25 11:34 Troponin T Baseline 32 ng/L (0-10) H 03/11/25 11:34 Troponin T 120 Minute 27.76 ng/L (0-10) H 03/11/25 13:47 Delta Troponin T -4.24 ABS# (0-10) L 03/11/25 13:47 Total Protein 6.8 g/dL (6.6-8.7) 03/11/25 11:34 Albumin 3.9 g/dL (3.5-5.2) 03/11/25 11:34 Globulin 2.9 g/dL (1.3-4.6) 03/11/25 11:34 Urine Color Yellow (Yellow) 03/11/25 10:30 Urine Appearance Clear (CLEAR) 03/11/25 10:30 Urine pH 8 (5-7) A 03/11/25 10:30 Ur Specific [place] 1.010 (1.005-1.030) 03/11/25 10:30 Urine Protein Neg (Negative) 03/11/25 10:30 Urine Glucose (UA) Norm (Normal) 03/11/25 10:30 Urine Ketones Negative (Negative) 03/11/25 10:30 Urine Blood Neg (Negative) 03/11/25 10:30 Urine Nitrate Negative (Negative) 03/11/25 10:30 Urine Bilirubin Neg (Negative) 03/11/25 10:30 Urine Urobilinogen Neg mg/dL (Negative) 03/11/25 10:30 Ur Leukocyte Esterase Negative (Negative) 03/11/25 10:30 Urine RBC 6-10 /hpf (0-2) 03/11/25 10:30 Urine WBC 0-5 /hpf (0-5) 03/11/25 10:30 Ur Squamous Epith Cells 0-5 /hpf (0-5) 03/11/25 10:30 Amorphous Sediment Not Reportable 03/11/25 10:30 Urine Bacteria Trace /hpf (NONE) 03/11/25 10:30 Hyaline Casts 1.65 /lpf 03/11/25 10:30 All radiology interpretation(s) finalized by discharge Discharge Plan Discharge Patient Disposition: Home Clinical Impression: Altered mental status Qualifiers: Altered mental status type: disorientation Qualified Code(s): R41.0 - Disorientation, unspecified Condition: Stable Prescriptions: No Action enalapril maleate 10 mg tablet 10 mg PO QAM alendronate 70 mg tablet 70 mg PO Q7D Rx Instructions: on wednesday citalopram 20 mg tablet 20 mg PO QAM hydrochlorothiazide 50 mg tablet 50 mg PO QAM celecoxib [Celebrex] 200 mg capsule 200 mg PO QAM simvastatin 40 mg tablet 40 mg PO QPM Myrbetriq 50 mg tablet extended release 24 hr 50 mg PO BEDTIME betamethasone dipropionate 0.05 % cream 1 applic topical BID PRN (Reason: Rash) (DME) Toe Alignment Splint See Rx Instructions .Route .MEDSUPPLY Qty: 1 0RF Rx Instructions: As directed doxycycline hyclate 100 mg capsule 100 mg PO DAILY solifenacin [Vesicare] 5 mg tablet 5 mg PO DAILY mupirocin 2 % ointment 1 applic topical BID PRN (Reason: unknown) Qty: 22 0RF clobetasol 0.05 % gel 1 applic topical BID 14 Days Qty: 15 0RF triamcinolone acetonide 0.1 % ointment 1 applic topical BID PRN (Reason: unknown) Qty: 80 1RF Rx Instructions: Apply to affected area no more than two weeks per month. Not for face. cholecalciferol (vitamin D3) 1,250 mcg (50,000 unit) capsule 50,000 unit PO Q7D Qty: 12 5RF potassium chloride [Klor-Con M10] 10 mEq tablet,ER particles/crystals 10 meq PO QAM multivitamin Tablet 1 tab PO QPM Discharge Orders: Discharge ED (Routine); Ordered 03/11/25 Ordered By: Angelo Law Referrals: Kvng Daniel MD [Primary Care Provider, [facility]] Discharge Diet: Advance as tolerated Discharge Activity: Resume usual activity Patient Instructions: Altered Mental Status (ED), Opioid Safety, Pain Management Activity Restrictions/Additional Instructions: Please keep your appointment as scheduled on Wednesday. Return to the emergency department with any new or worsening symptoms. Print Language: Kyrgyz Coding Level of Care Code ED Distribution Technician for Terry Posey
[2025-03-11 12:03] LABS: Troponin(5th) Baseline 32 ng/L (0-10)
[2025-03-11 12:10] LABS: Alanine Aminotransferase 13 U/L (0-33); Albumin Level 3.9 g/dL (3.5-5.2); Alkaline Phosphatase 60 U/L (35-105); Anion Gap 19.9 (5-19); Aspartate Amino Transferase 21 U/L (0-32); Blood Urea Nitrogen 17 mg/dL (8-23); Calcium 9.3 mg/dL (8.5-10.5); Carbon Dioxide 19 mmol/L (22-29); Chloride 94 mmol/L (98-107); Creatinine Clr Calc Pharmacy 40.6393; Globulin 2.9 g/dL (1.3-4.6); Glucose 103 mg/dL (65-115); Osmolality Calculated 270 mOsm/kg (285-295); Potassium 3.9 mmol/L (3.5-5.1); Sodium 129 mmol/L (136-145); Total Bilirubin 0.8 mg/dL (0.15-1.2); Total Protein 6.8 g/dL (6.6-8.7)
[2025-03-11 14:19] LABS: Troponin 5 2HR 27.76 ng/L (0-10)
[2025-03-11 14:20] LABS: Troponin 5 2HR Delta -4.24 ABS# (0-10)
== END 2025-03-11 15:37 | disposition home or self-care (01) ==
PROVIDERS: Emergency Medicine; Emergency Provider General Practice; PCP Family Medicine
DX: R41.0 Disorientation, unspecified (principal); E78.5 Hyperlipidemia, unspecified; I10 Essential (primary) hypertension
CPT/HCPCS: 36415; 71045; 80053; 81001; 84484; 85025; 93005; 99285

== ENCOUNTER → 2025-03-13 09:22 | Outpatient (BNVA) | payer MEDICARE, MEDICAID, SELFPAY | PROVIDERS: PCP Family Medicine; Referring Provider Psychiatry & Neurology Neurology; Visit Provider Psychiatry & Neurology Neurology | DX: R56.9 Unspecified convulsions (principal) | CPT/HCPCS: 95813 ==

== ENCOUNTER 2025-03-14 12:34 | Outpatient (CLI) | payer MEDICARE, MEDICAID, SELFPAY ==
--- NOTE | 2025-03-14 13:00 | MR_ITS ---
WS: [id number] MRA CAROTID ARTERIES HISTORY: R41.3 - Other amnesia COMPARISON: None available. TECHNIQUE: MRA is performed with intravenous gadolinium. MIP and source images are reviewed. Right: Cervical carotid artery arises normally from the innominate artery. There is a high-grade stenosis at the proximal RIGHT ICA. Small caliber external carotid artery but it is patent. Left: Normal arises from the arch. Multifocal areas of stenosis involving the proximal ICA. Stenoses greater than 50%, suspect tandem lesions. Subclavian Arteries: Normal. Vertebral Arteries: Normal. Patent. MR/MR angio neck w con* [id number] IMPRESSION: 1. 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 2. Recommend follow-up CT angiogram carotid arteries.
--- NOTE | 2025-03-14 13:45 | MR_ITS ---
WS: [id number] MRA ANGIOGRAPHY [place] HISTORY: R41.3 - Other amnesia COMPARISON: None available. TECHNIQUE: 3-D MR angiography is performed of the [place]. All images are reviewed including source images. Distal vertebral and basilar arteries are intact with no significant stenosis or plaque. Posterior cerebral arteries are normal course and caliber. Posterior communicating arteries are both patent. There is a focal 4 mm possible aneurysm involving the RIGHT intracranial carotid artery within the cavernous portion. There is additional mild plaque and luminal irregularity in the RIGHT distal carotid artery. Additional plaque in the LEFT carotid cavernous sinus but no aneurysm. Middle cerebral arteries are both patent with mild atherosclerotic disease. Anterior cerebral arteries are normal. Anterior communicating artery is negative. MR/MR angio head wo con [id number] IMPRESSION: 1. 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 Recommend follow-up CT angiogram [place]. 2. Additional atherosclerotic plaque bilaterally in the distal carotid arterie s and in the M1 segments. No occlusions.
--- NOTE | 2025-03-14 14:00 | MR_ITS ---
WS: [id number] MRI BRAIN WITH AND WITHOUT CONTRAST HISTORY: R41.3 - Other amnesia COMPARISON: 08/15/2008 TECHNIQUE: Multiplanar imaging performed through the brain with MultiHance 15 ml's IV. Normal diffusion imaging. No acute infarct. Mild cerebral and cerebellar atrophy with moderate T2 and FLAIR signal hyperintensities. There are confluent and patchy areas of increased T2 signal surrounding the ventricles. Mild bilateral hippocampal atrophy. No susceptibility artifacts or prior lacunar infarcts. Ventricles and extra-axial spaces are normal. Clivus and pituitary gland are normal. Visualized posterior fossa and brainstem are also normal. Postcontrast images are negative for masses or vascular malformations. Dural venous sinuses are normal. Paranasal sinuses: Well aerated with no significant disease. Mastoid air cells: Normal. Calvarium and scalp: Hyperostosis frontalis interna. MR/MR head wo/w con [id number] IMPRESSION: 1. No acute infarct or hemorrhage. 2. Mild cerebral and cerebellar atrophy. 3. Mild hippocampal atrophy. 4. Moderate scattered white matter hyperintensities. These can be seen with sm all vessel angiopathic disease, hypertension, diabetes and smoking. 5. No enhancing mass.
[2025-03-14] MEDS: gadobenate dimeglumine 20 mL vial 15 ML IV (14:40)
== END 2025-03-14 12:35 | disposition home or self-care (01) ==
LOC: RAD 12:36
PROVIDERS: PCP Family Medicine; Visit Provider Psychiatry & Neurology Neurology
DX: R41.3 Other amnesia (principal); G31.89 Other specified degenerative diseases of nervous system; R93.0 Abnormal findings on diagnostic imaging of skull and head, not elsewhere classified; I65.23 Occlusion and stenosis of bilateral carotid arteries
CPT/HCPCS: 70544; 70548; 70553

== ENCOUNTER → 2025-04-25 15:06 | Outpatient (BNVA) | payer MEDICARE, OTHER, MEDICAID, SELFPAY | PROVIDERS: PCP Family Medicine; Visit Provider Internal Medicine Cardiovascular Disease | DX: I77.9 Disorder of arteries and arterioles, unspecified (principal); I25.10 Atherosclerotic heart disease of native coronary artery without angina pectoris; R07.9 Chest pain, unspecified; I10 Essential (primary) hypertension | CPT/HCPCS: 93005; 99204 ==

== ENCOUNTER → 2025-04-30 08:55 | Outpatient (BNVA) | payer MEDICARE, OTHER, MEDICAID, SELFPAY | PROVIDERS: PCP Family Medicine; Visit Provider Dermatology | DX: L13.8 Other specified bullous disorders (principal); L72.0 Epidermal cyst; L85.3 Xerosis cutis | CPT/HCPCS: 99214 ==

== ENCOUNTER 2025-06-25 09:50 | Emergency (ER) | payer MEDICARE, OTHER, MEDICAID, SELFPAY ==
[2025-06-25] VITALS (38 sets, daily range): BP systolic 148–214; BP diastolic 54–102; PULSE 65–82; RESP 14–30; TEMP 36.6; O2SAT 90–100; BMI 34.2
--- OUTSIDE RECORDS SUMMARY | 2025-06-25 09:57 | XMS_ITS | Patient Health Record ---
Author Organization [facility] Address [address] [place] [address] Care Team Providers Care Pmo Analyst Name Role Phone Kvng Daniel Primary Care Provider ISABEL Rodríguez Unavailable [phone] DEEDEE TAVAREZ Unavailable [phone] Allergies Allergen (clinical drug ingredient) Drug/Non Drug Allergy documented on EMR Reaction Allergy Type Onset Date Status ibuprofen Ibuprofen Unknown Drug Allergy Active Results Component Value Reference Range Notes Urinalysis, Routine Reviewed date:12/01/2024 09:04:09 AM Interpretation: Performing Lab: Notes/Report: Urine-Color dark yellow Appearance cloudy Glucose - Bilirubin 1+ Ketones - Specific [place] 1.015 Occult Blood - pH 6.0 Urine Protein trace Urobilinogen,Semi-Qn - Nitrite, Urine - WBC Esterase 1+ UTI Pathogen Panel PCR Reviewed date:12/04/2024 01:32:03 PM Interpretation: Performing Lab: Notes/Report: UTI Resistance Panel PCR Reviewed date:12/04/2024 01:33:10 PM Interpretation: Performing Lab: Notes/Report: Urinalysis, Routine Reviewed date:02/16/2025 09:50:54 AM Interpretation: Performing Lab: Notes/Report: Urine-Color yellow Appearance clear Glucose - Bilirubin - Ketones - Specific [place] 1.010 Occult Blood - pH 6.0 Urine Protein +- Urobilinogen,Semi-Qn - Nitrite, Urine - WBC Esterase - Urinalysis, Routine Reviewed date:05/18/2025 08:52:58 AM Interpretation: Performing Lab: Notes/Report: Urine-Color yellow Appearance clear Glucose - Bilirubin 1+ Ketones - Specific [place] 1.015 Occult Blood - pH 6.5 Urine Protein 1+ Urobilinogen,Semi-Qn - Nitrite, Urine - WBC Esterase - Reason For Referral No Information Medications Medication SIG (Take, Route, Frequency, Duration) Notes Start Date End Date Status Celecoxib 200 MG 1 capsule with food Orally Once a day Active Simvastatin 40 MG 1 tablet in the evening Orally Once a day Active Enalapril Maleate 10 MG 1 tablet Orally Once a day Active Alendronate Sodium 70 MG 1 tablet 30 min utes before the first food, beverage or medicine of the day with plain water Orally Active Mupirocin Active Betamethasone Active Citalopram Hydrobromide 20 MG 1 tablet O rally Once a day Active hydroCHLOROthiazide 50 MG 1 tablet in th e morning Orally Once a day Active Multivitamin - 1 tablet Orally Once a day Active Potassium Chloride 10mg A ctive Triamcinolone Acetonide Active Doxycycline Hyclate 100 MG 1 capsule Ora lly Once a day Not-Taking Myrbetriq 50 MG 1 tablet Orally Once a day at night Active Solifenacin Succinate 5 MG 1 tablet Oral ly Once a day in AM 02/16/2025 Active Social History Tobacco Use: Social History Observation Description Date Details (start date - stop date) Never Smoker NA - NA Tobacco Control (Standard) Question Answer Notes Tobacco use: Nonsmoker AUDIT-C (Standard) Question Answer Notes Did you have a drink containing alcohol in the p ast year? No Points 0 Interpretation Negative Section Notes: non drinker non smoker denies drug use non drinker non smoker denies drug use non drinker non smoker denies drug use non drinker non smoker denies drug use Problems Problem Type SNOMED Code ICD Code Onset Dates Problem Status W/U Status Risk Notes Problem Overactive bladder (299727543) Overactive bladder (N32.81) Active confirmed Problem History of excision of intestinal structure (065199115) History of bowel resection (Z90.49) Active confirmed Problem Nephrosclerosis (44608656) Left renal atrophy (N26.1) Active confirmed Problem Urge incontinence of urine (24669064) Urge incontinence of urine (N39.41) Active confirmed Problem History of malignant neoplasm of colon (958437968) History of colon cancer (Z85.038) Active confirmed Problem Functional urinary incontinence (595646318) Functional incontinence (R39.81) Active confirmed Vital Signs Heart Rate 59 /min 05/18/2025 Blood pressure diastolic 53 mm Hg 05/18/2025 Height-cm 147.32 cm 05/18/2025 Weight-kg 72.58 kg 05/18/2025 Height 58 in 05/18/2025 Blood pressure systolic 162 mm Hg 05/18/2025 Weight 160 lbs 05/18/2025 BMI 33.44 kg/m2 05/18/2025 Procedures Procedure Date Ordered Date Performed Result Body Sit e Bladder Scan 12/01/2024 12/01/2024 PVR 40ml Bladder Scan 12/22/2024 12/22/2024 0 mL Bladder Scan 02/16/2025 02/16/2025 N/A Bladder Scan 05/18/2025 05/18/2025 N/A Encounters Encounter Location Date Provider Diagnosis [facility] [address] [address] 12/01/2024 ISABEL ROBERSON Chronic UTI (urinary tract infection) N39.0 ; Leukocytes in urine R82.998 ; Overactive bladder N32.81 ; Urge incontinence of urine N39.41 ; Nocturia R35.1 ; History of colon cancer Z85.038 ; History of bowel resection Z90.49 and History of hematuria Z87.[address] [facility] [address] [address] 12/22/2024 ISABEL ROBERSON Urge incontinence of urine N39.41 ; Chronic UTI (urinary tract infection) N39.0 ; Leukocytes in urine R82.998 ; Overactive bladder N32.81 ; Nocturia R35.1 ; History of colon cancer Z85.038 ; History of bowel resection Z90.49 and History of hematuria Z87.448 [facility] [address] [address] 02/16/2025 ISABEL ROBERSON Overactive bladder N32.81 ; Left renal atrophy N26.1 ; Urge incontinence of urine N39.41 ; Nocturia R35.1 ; Impaired mobility Z74.09 ; Functional incontinence R39.81 ; Chronic UTI (urinary tract infection) N39.0 ; History of colon cancer Z85.038 ; History of bowel resection Z90.49 and History of hematuria Z87.[address] [facility] [address] [place] [address] 05/18/2025 ISABEL ROBERSON Urge incontinence of urine N39.41 ; Overactive bladder N32.81 ; Left renal atrophy N26.1 ; Nocturia R35.1 ; Impaired mobility Z74.09 ; Functional incontinence R39.81 ; Chronic UTI (urinary tract infection) N39.0 ; History of colon cancer Z85.038 ; History of bowel resection Z90.49 and History of hematuria Z87.448 [facility], [facility] [address] [place] [address] 11/20/2024 DEEDEE TAVAREZ [facility], [facility] [address] [place] [address] 12/04/2024 ISABEL ROBERSON Assessments Encounter Date Diagnosis (ICD Code) Assessment Notes Treatment Notes Treatment Clinical Notes Section Notes 02/16/2025 Overactive bladder (ICD-10 - N32.81) 02/16/2025 Left renal atrophy (ICD-10 - N26.1) 12/01/2024 Chronic UTI (urinary tract infection) (ICD-10 - N39.0) 12/01/2024 Leukocytes in urine (ICD-10 - R82.998) 12/22/2024 Urge incontinence of urine (ICD-10 - N39.41) 05/18/2025 Urge incontinence of urine (ICD-10 - N39.41) 12/22/2024 Chronic UTI (urinary tract infection) (ICD-10 - N39.0) 05/18/2025 Overactive bladder (ICD-10 - N32.81) 12/01/2024 Overactive bladder (ICD-10 - N32.81) 02/16/2025 Urge incontinence of urine (ICD-10 - N39.41) 02/16/2025 Nocturia (ICD-10 - R35.1) 12/22/2024 Leukocytes in urine (ICD-10 - R82.998) 12/01/2024 Urge incontinence of urine (ICD-10 - N39.41) 05/18/2025 Left renal atrophy (ICD-10 - N26.1) 12/22/2024 Overactive bladder (ICD-10 - N32.81) 02/16/2025 Impaired mobility (ICD-10 - Z74.09) 12/01/2024 Nocturia (ICD-10 - R35.1) 05/18/2025 Nocturia (ICD-10 - R35.1) 12/01/2024 History of colon cancer (ICD-10 - Z85.038) 02/16/2025 Functional incontinence (ICD-10 - R39.81) 12/22/2024 Nocturia (ICD-10 - R35.1) 05/18/2025 Impaired mobility (ICD-10 - Z74.09) 12/22/2024 History of colon cancer (ICD-10 - Z85.038) 05/18/2025 Functional incontinence (ICD-10 - R39.81) 02/16/2025 Chronic UTI (urinary tract infection) (ICD-10 - N39.0) 12/01/2024 History of bowel resection (ICD-10 - Z90.49) 12/01/2024 History of hematuria (ICD-10 - Z87.448) 02/16/2025 History of colon cancer (ICD-10 - Z85.038) 05/18/2025 Chronic UTI (urinary tract infection) (ICD-10 - N39.0) 12/22/2024 History of bowel resection (ICD-10 - Z90.49) 12/22/2024 History of hematuria (ICD-10 - Z87.448) 05/18/2025 History of colon cancer (ICD-10 - Z85.038) 02/16/2025 History of bowel resection (ICD-10 - Z90.49) 02/16/2025 History of hematuria (ICD-10 - Z87.448) 05/18/2025 History of bowel resection (ICD-10 - Z90.49) 05/18/2025 History of hematuria (ICD-10 - Z87.448) 12/01/2024 Other UA with leukocy lili today. Send for PCR. STOP Myrbetriq due to feelings of retention and continued incontinence. Trial Gemtesa, administration and s/e profile reviewed. Samples given. We have discussed behavioral modifications for recurrent UTI including timed and double voiding, increased water intake, supplementation with Cranberry extract and probiotics, preventing/treatin g constipation, and vaginal estrogen as indicated. We have also discussed the indications for a CT Abd/Pelv w/ and w/o contrast. RTC in [address] review and symptom reassessment on Gemtesa. If infections continue, will consider cysto. All questions that were asked were answered. Patient is satisfied with plan of care. This patient has clinical indication for infectious disease testing. Urinalysis performed indicates the need for further sensitive detection by PCR. The patient is at higher risk for UTI complications and is being seen in the urologic setting. The enhanced diagnostic accuracy, identification of possible resistance mutations, and quicker result to better guide antibiotics and prevention infection complications that PCR provides is recommended. 12/22/[address] abdomen pelv is with and without contrast on 12/07/2024 revealed no acute urologic abnormalities. 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 I have independently reviewed imaging, along with radiologic report. I reviewed images and discussed findings with patient in the exam room. We have discussed the importance of increasing water intake for overall hydration and urinary output. Recommend that she start keeping track of her input and output to make sure there is no concern of renal problem that would constitute nephrology workup. Patient and granddaughter are agreeable. Continue Gemtesa samples, then reassess symptoms after completion to see if she did have noticeable benefit. Call if she would like prescription sent in. Return to clinic in 2 months with UA/PVR, or as needed sooner. 02/16/2025 Other UA clear, PVR 84ml. She is drinking 6 glasses of water a day. Recommend moving her protein drink to earlier in the day to help with her evening frequency. I will add Vesicare to use in combination with Myrbetriq to help her urgency and incontinence. She can take the Vesicare in the AM, and keep taking her Myrbetriq at dinner as she is now. RTC in 3 months with UA/PVR, or PRN sooner. 05/18/2025 Other UA clear, empty ing well. She is content with current urinary symptom control on Myrbetriq and Vesicare combo. Continue to keep bowels regulated, stay well hydrated and avoid known bladder irritants. RTC in 6 months with UA/PVR, or PRN sooner. Plan Of Treatment Pending Test Test Name Order Date CT Abd & Pelvis [place] & [place] [id number] 12/01/2024 BUN, Creatinine 12/01/2024 Next Appt Details Provider Name:ISABEL ROBERSON, 0 11/22/2025 09:00:00 AM, [address] [place], [address], Insurance Providers Payer Name Payer Address Payer Phone Subscriber Number Group Number Insured Name Patient Relationship to Insured Coverage Start Date Coverage End Date [place] [address] NIKOLAI EDGAR [id number] Irma Lyn Self - patient is the insured [facility] ([place], [place]) [employer] [address] [address] [place] [address] [phone] [id number] Irma Lyn Self - patient is the insured [facility] [address] [address] [place], [place] [id number] [phone] [id number] Irma Lyn Self - patient is the insured Medical (General) History Medical History History ICD Code anxiety arthritis - oseoarthritis colon cancer HTN back pain blood in urine burning with urination difficulty urinating incontinence urinary frequency UTI urinary retention urinary urgency Surgical History Surgery Date(Month/Year) colon cancer bowel resection 2006 internal hernia - partial bowel resectio n 2023 hernia repair Hospitalization History Reason Date(Month/Year) bowel obstruction 05/2023 infected hematoma 02/2024 bowel obstruction 01/2024 see sx colon cancer 2006
--- OUTSIDE RECORDS SUMMARY | 2025-06-25 09:57 | XMS_ITS | Clinical Summary ---
Author Organization [facility] Address [address] [place] [address] Phone Care Team Providers Care Last Code Striper Name Role Phone Unavailable Primary Care Provider Unavailabl e Social History Tobacco Use Types Packs/Day Years Used Date Smoking Tobacco: Never Assessed Comments Unknown Sex and Gender Information Value Date Recorded Sex Assigned at Not on file Legal Sex Female 10:29 AM CDT Gender Identity Not on file Sexual Orientation Not on file Plan of Treatment Health Maintenance Due Date Last Done Comments DTAP/TDAP/TD VACCINES (1 - Tdap) 1958 PNEUMOCOCCAL VACCINE 50+ YEARS (1 of 1 - PCV) 09/20/19 89 ZOSTER VACCINE (1 of 2) 1989 OSTEOPOROSIS SCREENING 2004 RSV VACCINE (60+ or ) (1 - 1-dose 75+ series) 2014 INFLUENZA VACCINE (#1) 2025 [id number] MEDICARE PART A AND B [facility] [place] [address]
--- NOTE | 2025-06-25 09:58 | CTR_ITS ---
PROCEDURE INFORMATION: Exam: CT Head Without Contrast Exam date and time: 06/25/2025 10:13 AM Age: 84 years old Clinical indication: Pain; Headache; Additional info: Headache, hypertension TECHNIQUE: Imaging protocol: Computed tomography of the head without contrast. Radiation optimization: All CT scans at this facility use at least one of these dose optimization techniques: automated exposure control; mA and/or kV adjustment per patient size (includes targeted exams where dose is matched to clinical indication); or iterative reconstruction. COMPARISON: MR head wo/w con [id number] 14/03/2025 13:29 RADIATION DOSE METRICS: Total DLP (mGy-cm): 1080.68 FINDINGS: Brain: Diffuse cerebral atrophy. No acute intracranial hemorrhage or abnormal extra-axial fluid collections. Subtle area of low attenuation within the inferior right lateral basal ganglion (series 4, image 19). Cerebral ventricles: Stable in size and configuration. Paranasal sinuses: Mild mucosal thickening in the right maxillary antrum , scattered ethmoid air cells and sphenoid sinuses. Mastoid air cells: Visualized mastoid air cells are well aerated. Bones: Calvarial thickening. Soft tissues: Unremarkable. 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 CT/CT head wo con* [id number] IMPRESSION: 1. Subtle area of low attenuation in the inferior right lateral basal ganglion region which could represent acute versus subacute infarct. Total ASPECT Score: 9. Clinical correlation is needed. No acute hemorrhage. 2. Mild mucosal thickening in the right maxillary antrum, scattered ethmoid air cells and sphenoid sinuses.
--- NOTE | 2025-06-25 09:58 | XRR_ITS ---
PROCEDURE INFORMATION: Exam: XR Chest Exam date and time: 06/25/2025 09:58 AM Age: 84 years old Clinical indication: Sternal or substernal pain; Additional info: Chest pain TECHNIQUE: Imaging protocol: Radiologic exam of the chest. Views: 1 view. COMPARISON: CR XR chest 1V portable [id number] 11/03/2025 11:11 FINDINGS: Lungs: Calcified granuloma near the left costophrenic angle. No new airspace disease. Pleural spaces: No pleural effusion or pneumothorax. Heart/Mediastinum: Cardiac size and configuration is stable. Stable chunky calcification over the mid cardiac silhouette, noted on prior studies of uncertainty etiology. Bones/joints: Degenerative changes of the thoracic spine and AC joints. Intraperitoneal space: Upper abdomen is unremarkable. XR/XR chest 1V portable [id number] IMPRESSION: No acute findings.
--- NOTE | 2025-06-25 09:59 | W.ED.HA ---
HPI - Headache General: Chief Complaint: Headache Stated Complaint: hypertension - headache Source: patient, family and EMS Mode of arrival: EMS Limitations: no limitations History of Present Illness: Patient is an 84-year-old female presents to ED today via EMS for evaluation of a headache and hypertension. Patient reportedly resides with her sister who contacted EMS. Shortly after arrival patient's son and [id number] arrive to provide further history. They states she does take medications daily for her blood pressure but states it is normally somewhat controlled. They state normal systolics over roughly in the 140s but sometimes can be in the 160s. They do report she has a history of frequent headaches and often takes Tylenol for these. She has a history of dementia. She was seeing Dr. Patiño but after his [place] [facility] they are currently in between neurologists. They state headache reportedly (according to the sister) started this morning after patient awoke. They reportedly checked her blood pressure with readings of over 200s systolic thus called EMS. Upon arrival, patient has no physical complaints apart from her headache. She does feel nauseous and has an emesis basin in front of her. No active vomiting reported. No injury or trauma. She is not complaining of any chest pain. States headache seems to be more sensitive to light. MD elicited complaint: headache Onset description: on awakening Severity: severe Exacerbating factors: light Relieving factors: nothing Associated symptoms: Reports nausea; Deny chest pain, confusion, fever(s), lightheadedness, malaise, pre-syncope, rash, syncope or vomiting Treatments prior to arrival: none Related Data Home Medications ?Medication ?Instructions ?Recorded ?Confirmed alendronate 70 mg tablet 70 mg PO Q7D 11/04/22 06/25/25 betamethasone dipropionate 0.05 % 1 applic topical BID PRN Rash 11/04/22 06/25/25 topical cream celecoxib 200 mg capsule (Celebrex) 200 mg PO QAM 11/04/22 06/25/25 citalopram 20 mg tablet 20 mg PO QAM 11/04/22 06/25/25 enalapril maleate 10 mg tablet 10 mg PO QAM 11/04/22 06/25/25 hydrochlorothiazide 50 mg tablet 50 mg PO QAM 11/04/22 06/25/25 mirabegron 50 mg tablet,extended 50 mg PO BEDTIME 11/04/22 06/25/25 release 24 hr (Myrbetriq) simvastatin 40 mg tablet 40 mg PO QPM 11/04/22 06/25/25 multivitamin 1 tab PO QPM 02/06/24 06/25/25 potassium chloride 10 mEq 10 meq PO QAM 02/06/24 06/25/25 tablet,extended release(part/cryst) (Klor-Con M) mirtazapine 7.5 mg tablet 7.5 mg PO QPM 04/25/25 06/25/25 acetaminophen 500 mg tablet 500 mg PO Q6H PRN Pain 06/25/25 06/25/25 clobetasol 0.05 % topical gel 1 applic topical BID PRN Skin 06/25/25 06/25/25 Irritation d-mannose 500 mg capsule 500 mg PO DAILY 06/25/25 06/25/25 niacinamide 50 mg tablet 50 mg PO DAILY 06/25/25 06/25/25 Previous Rx's ?Medication ?Instructions ?Recorded Toe Alignment Splint #1 ea 02/19/23 triamcinolone acetonide 0.1 % 1 applic topical BID PRN unknown 11/14/24 topical ointment #80 grams cholecalciferol (vitamin D3) 1,250 50,000 unit PO Q7D #12 caps 03/07/25 mcg (50,000 unit) capsule Allergies Allergy/AdvReac Type Severity Reaction Status Date / Time No Known Allergies Allergy Unverified 04/25/25 15:23 Review of Systems Const: Denies: fever(s), chills, body aches, change in appetite, change in weight, fatigue or malaise Eyes: Reports: photophobia; Denies: change in vision, blurry vision, eye discomfort, floaters or seeing flashes ENMT: Denies: throat pain, odynophagia, ear or mastoid pain, nasal discharge, nasal congestion or sinus pain Card: Denies: chest pain, palpitations, irregular heart rhythm, lightheadedness, syncope or pre-syncope Resp: Denies: dyspnea GI: Reports: nausea; Denies: vomiting : Denies: flank pain, dysuria or hematuria Musc: Denies: neck pain, back pain, extremity pain, extremity swelling, joint pain, joint swelling or joint redness Skin/Breast: Denies: rash Neuro: Reports: headache(s); Denies: numbness in extremities, weakness in extremities, sensory changes, lack of coordination, difficulty walking, frequent falls, dizziness, vertigo, confusion, behavioral changes, Slurred speech present, difficulty communicating thoughts or seizure-like activity [facility] PFSH: Medical History Hyperlipidemia Hypertension Surgical History No pertinent past surgical history Social History Smoking and tobacco/nicotine status: never used tobacco/nicotine Physical Exam Const: COMMON NORMALS: average body habitus, no limitations, alert and well nourished GENERAL APPEARANCE: cooperative OTHER: at mental baseline per family; appears uncomfortable secondary to headache HENMT: COMMON NORMALS: normocephalic and atraumatic HEAD & SCALP: normal to inspection, normocephalic and atraumatic FACE & SINUS: normal facial exam and face symmetric Eye: GENERAL EYE: appearance normal, both eyes and all related structures Neck/C-Spine: COMMON NORMALS: full ROM, no lymphadenopathy and no meningeal signs GENERAL: Yes normal visual inspection Resp: COMMON NORMALS: normal respiratory effort and clear to auscultation bilaterally AUSCULTATION: clear to auscultation bilaterally Cardio: COMMON NORMALS: regular rate and regular rhythm RATE: regular rate RHYTHM: regular rhythm GI: COMMON NORMALS: Normal to inspection, nondistended, normoactive bowel sounds present, Soft to palpation, non-tender and no masses PALPATION: Yes Soft to palpation : COMMON NORMALS: Yes no CVA tenderness BLADDER/KIDNEY EXAM: Yes no CVA tenderness Back/Pelvis: COMMON NORMALS: no CVA tenderness and thoracic and lumbar spine normal to inspection Extremity: COMMON NORMALS: normal to inspection, capillary refill normal, no clubbing, cyanosis or edema, no calf tenderness and no pedal edema GENERAL: Yes normal exam except as noted Neuro: JULIO COMA SCALE: document GCS findings [place] coma scale eye opening: Spontaneous Julio coma scale verbal response: Orientated Julio coma scale motor response: Obey commands Julio coma scale total score: 15 COMMON NORMALS: CN's II-XII intact bilaterally, moves all extremities, no focal motor deficits and no sensory deficits noted SENSORIUM/ORIENTATION: Yes alert MENINGEAL SIGNS: Yes no meningeal signs Skin: COMMON NORMALS: no rashes or lesions noted GENERAL SKIN EXAM: no rashes or lesions noted Course Vital Signs: Vital signs: Vital Signs Temperature 97.9 F 06/25/25 09:54 Pulse Rate 66 06/25/25 12:45 Respiratory Rate 17 06/25/25 12:45 Blood Pressure 148/54 06/25/25 12:45 Pulse Oximetry 100 06/25/25 12:45 Oxygen Delivery Me thod Room Air 06/25/25 09:54 MDM - Headache Medical Decision Making Patient is a nice 84-year-old female here for complaints of a headache with noted elevated blood pressure reading at home. Patient resides with her sister. Family states they do not routinely check her blood pressures at home. She does take enalapril and HCTZ for her blood pressure. She had not taken this this morning. She arrived with a blood pressure of 214/74. Headache has improved while here. Her blood work overall is nonactionable. White count is normal. She has chronic hyponatremia. Urine is clear. Baseline troponin of 30 which is similar to back in February. Nonsignificant delta. She has no complaints of chest pain. EKGs are nonischemic. CT scan obtained due to hypertension/headache. There was a subtle area of low-attenuation in her right basal ganglia on which could represent acute versus subacute infarct with clinical correlation needed. Clinically she has no stroke symptoms. NIH 0. MCA symptoms here should present with hemiparesis/hemiplegia, sensory loss, dysarthria, etc none of which she has. Discussed with Dr. Keenan regarding these-agreed that this is most likely subacute given her presentation here today. She does have follow-up with neurology next month. Recommend she keep a blood pressure log at home and follow-up with primary care later this week so they can titrate medications based on this log. Differential Diagnosis Likely migraine, tension headache, subarachnoid hemorrhage and headache Medical Records I reviewed the patient's medical records. Lab Data I reviewed the patient's lab results. 06/25/25 10:02 06/25/25 10:02 Radiology Impressions Chest X-Ray 06/25/25 09:58 IMPRESSION: No acute findings. Head CT 06/25/25 09:58 IMPRESSION: 1. Subtle area of low attenuation in the inferior right lateral basal ganglion region which could represent acute versus subacute infarct. Total ASPECT Score: 9. Clinical correlation is needed. No acute hemorrhage. 2. Mild mucosal thickening in the right maxillary antrum, scattered ethmoid air cells and sphenoid sinuses. ADDENDUM: 06/25/25 1040 COMMENT: THIS REPORT CONTAINS FINDINGS THAT MAY BE CRITICAL TO PATIENT CARE. The exam findings were verbally communicated by me to Zara Villalobos, nurse practitioner caring for the patient, via telephone conference at 10:38 AM CDT on 06/25/2025. The findings were acknowledged and understood. Laboratory Results WBC 8.78 10^3/uL (3.29-11.43) 06/25/25 10:02 RBC 4.27 10^6/uL (3.85-5.65) 06/25/25 10:02 Hgb 13.50 g/dL (11.27-16.99) 06/25/25 10:02 Hct 38.2 % (36-47) 06/25/25 10:02 MCV 89.5 fl (85-98) 06/25/25 10:02 MCH 31.6 pg (27-33) 06/25/25 10:02 MCHC 35.3 g/dL (30-55) 06/25/25 10:02 RDW 11.9 % (12.1-15.1) L 06/25/25 10:02 Plt Count 274 10^3/cmm (157-399) 06/25/25 10:02 MPV 7.9 fL (7.4-10.4) 06/25/25 10:02 Neut % (Auto) 69.4 % 06/25/25 10:02 Lymph % (Auto) 16.7 % 06/25/25 10:02 [place] % (Auto) 7.5 % 06/25/25 10:02 Eos % (Auto) 5.5 % 06/25/25 10:02 Baso % (Auto) 0.8 % 06/25/25 10:02 Neut # (Auto) 6.09 10^3/uL (1.8-7.7) 06/25/25 10:02 Lymph # (Auto) 1.5 10^3/uL (0.8-4.8) 06/25/25 10:02 [place] # (Auto) 0.7 10^3/uL (0.2-0.9) 06/25/25 10:02 Eos # (Auto) 0.5 10^3/uL (0.0-0.8) 06/25/25 10:02 Baso # (Auto) 0.1 10^3/uL (0.0-0.1) 06/25/25 10:02 Nucleated RBC % (auto) 0 % 06/25/25 10:02 Nucleated RBCs # 0.0 /100WBC 06/25/25 10:02 Sodium 128 mmol/L (136-145) L 06/25/25 10:02 Potassium 3.5 mmol/L (3.5-5.1) 06/25/25 10:02 Chloride 90 mmol/L (98-107) L 06/25/25 10:02 Carbon Dioxide 20 mmol/L (22-29) L 06/25/25 10:02 Anion Gap 21.5 (5-19) H 06/25/25 10:02 BUN 16 mg/dL (8-23) 06/25/25 10:02 Creatinine 0.8 mg/dL (0.5-0.9) 06/25/25 10:02 GFR Calculation Not Reportable 06/25/25 10:02 Glucose 112 mg/dL (65-115) 06/25/25 10:02 Calculated Osmolality 268 mOsm/kg (285-295) L 06/25/25 10:02 Calcium 9.7 mg/dL (8.5-10.5) 06/25/25 10:02 Total Bilirubin 0.8 mg/dL (0.15-1.2) 06/25/25 10:02 AST 31 U/L (0-32) 06/25/25 10:02 ALT 21 U/L (0-33) 06/25/25 10:02 Alkaline Phosphatase 80 U/L (35-105) 06/25/25 10:02 Troponin T Baseline 30 ng/L (0-10) H 06/25/25 10:02 Troponin T 120 Minute 32.25 ng/L (0-10) H 06/25/25 11:48 Delta Troponin T 2.25 ABS# (0-10) 06/25/25 11:48 Total Protein 7.2 g/dL (6.6-8.7) 06/25/25 10:02 Albumin 4.4 g/dL (3.5-5.2) 06/25/25 10:02 Globulin 2.8 g/dL (1.3-4.6) 06/25/25 10:02 Urine Color Yellow (Yellow) 06/25/25 12:26 Urine Appearance Clear (CLEAR) 06/25/25 12:26 Urine pH 8.0 (5-7) A 06/25/25 12:26 Ur Specific [place] 1.011 (1.005-1.030) 06/25/25 12:26 Urine Protein 2+ (Negative) A 06/25/25 12:26 Urine Glucose (UA) Negative (Normal) 06/25/25 12:26 Urine Ketones Trace (Negative) 06/25/25 12:26 Urine Blood Negative (Negative) 06/25/25 12:26 Urine Nitrate Negative (Negative) 06/25/25 12:26 Urine Bilirubin Negative (Negative) 06/25/25 12:26 Urine Urobilinogen 0.2 mg/dL (Negative) 06/25/25 12:26 Ur Leukocyte Esterase Negative (Negative) 06/25/25 12:26 Urine RBC 0-2 /hpf (0-2) 06/25/25 12:26 Urine WBC 0-5 /hpf (0-5) 06/25/25 12:26 Ur Squamous Epith Cells 0-5 /hpf (0-5) 06/25/25 12:26 Amorphous Sediment Not Reportable 06/25/25 12:26 Urine Bacteria None seen /hpf (NONE) 06/25/25 12:26 Hyaline Casts 0-4 /lpf H 06/25/25 12:26 All radiology interpretation(s) finalized by discharge Discharge Plan Discharge Patient Disposition: Home Clinical Impression: Hypertension Qualifiers: Hypertension type: unspecified Qualified Code(s): I10 - Essential (primary) hypertension Headache Qualifiers: Headache type: unspecified Headache chronicity pattern: acute headache Intractability: not intractable Qualified Code(s): R51.9 - Headache, unspecified Condition: Stable Prescriptions: No Action enalapril maleate 10 mg tablet 10 mg PO QAM alendronate 70 mg tablet 70 mg PO Q7D Rx Instructions: on Wednesday citalopram 20 mg tablet 20 mg PO QAM hydrochlorothiazide 50 mg tablet 50 mg PO QAM celecoxib [Celebrex] 200 mg capsule 200 mg PO QAM simvastatin 40 mg tablet 40 mg PO QPM Myrbetriq 50 mg tablet extended release 24 hr 50 mg PO BEDTIME betamethasone dipropionate 0.05 % cream 1 applic topical BID PRN (Reason: Rash) (DME) Toe Alignment Splint See Rx Instructions .Route .MEDSUPPLY Qty: 1 0RF Rx Instructions: As directed mirtazapine 7.5 mg tablet 7.5 mg PO QPM triamcinolone acetonide 0.1 % ointment 1 applic topical BID PRN (Reason: unknown) Qty: 80 1RF Rx Instructions: Apply to affected area no more than two weeks per month. Not for face. cholecalciferol (vitamin D3) 1,250 mcg (50,000 unit) capsule 50,000 unit PO Q7D Qty: 12 5RF potassium chloride [Klor-Con M10] 10 mEq tablet,ER particles/crystals 10 meq PO QAM multivitamin Tablet 1 tab PO QPM acetaminophen 500 mg Tablet 500 mg PO Q6H PRN (Reason: Pain) niacinamide 50 mg Tablet 50 mg PO DAILY clobetasol 0.05 % gel 1 applic topical BID PRN (Reason: Skin Irritation) d-mannose 500 mg Capsule 500 mg PO DAILY Discharge Orders: Discharge ED (Routine); Ordered 06/25/25 Ordered By: Zraa Villalobos Referrals: Kvng Daniel MD [Primary Care Provider, Family Practice] Patient Instructions: Patient Portal & [facility]man Instructions Activity Restrictions/Additional Instructions: As we discussed, I would recommend keeping a blood pressure log-monitoring twice daily-and following up with primary care later this week so they can adjust any blood pressure medications based on these logs. She needs to continue plan to follow-up with neurology next month as scheduled. Print Language: Albanian Coding Level of Care Code ED Motorized [employer] for Terry Posey
[2025-06-25 10:06] LABS: Hematocrit 38.2 % (36-47); Hemoglobin 13.50 g/dL (11.27-16.99); Mean Corpuscular HGB Conc 35.3 g/dL (30-55); Mean Corpuscular Hemoglobin 31.6 pg (27-33); Mean Corpuscular Volume 89.5 fl (85-98); Nucleated Red Blood Cells % 0 %; Platelet Count 274 10^3/cmm (157-399); Red Blood Count 4.27 10^6/uL (3.85-5.65); White Blood Count 8.78 10^3/uL (3.29-11.43)
--- NOTE | 2025-06-25 10:23 | ECG_ITS ---
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 Measurements Intervals [place] Rate: 71 P: 4 [place]: 163 QRS: 2 QRSD: 91 T: 30 QT: 413 QTc: 451 Interpretive Statements SINUS RHYTHM LOW QRS VOLTAGE IN PRECORDIAL LEADS [QRS DEFLECTION < 1.0 mV IN CHEST LEADS] ANTEROSEPTAL MYOCARDIAL INFARCTION , OF INDETERMINATE AGE [40+ ms Q WAVE IN V1-V4] Compared to ECG 04/25/2025 15:12:33 No significant changes Electronically Signed On 06-25-2025 13:27:44 CDT by Neil Hammond M.D. [email or web address]
[2025-06-25 10:24] LABS: Troponin(5th) Baseline 30 ng/L (0-10)
[2025-06-25] MEDS: hyDRALAzine 20 mg/mL INJ 1 mL 10 MG IVP ×2 (10:26→12:09)
[2025-06-25 10:30] LABS: Alanine Aminotransferase 21 U/L (0-33); Albumin Level 4.4 g/dL (3.5-5.2); Alkaline Phosphatase 80 U/L (35-105); Anion Gap 21.5 (5-19); Aspartate Amino Transferase 31 U/L (0-32); Blood Urea Nitrogen 16 mg/dL (8-23); Calcium 9.7 mg/dL (8.5-10.5); Carbon Dioxide 20 mmol/L (22-29); Chloride 90 mmol/L (98-107); Creatinine Clr Calc Pharmacy 47.9282; Globulin 2.8 g/dL (1.3-4.6); Glucose 112 mg/dL (65-115); Osmolality Calculated 268 mOsm/kg (285-295); Potassium 3.5 mmol/L (3.5-5.1); Sodium 128 mmol/L (136-145); Total Protein 7.2 g/dL (6.6-8.7)
--- NOTE | 2025-06-25 10:48 | PC.PHAR ---
Family is unsure when pt last took medications.
[2025-06-25] MEDS: metoprolol tartrate 1 mg/1 mL SDV 5 mL 5 MG IVP (11:01)
--- NOTE | 2025-06-25 12:07 | ECG_ITS ---
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 Measurements Intervals [place] Rate: 66 P: 36 [place]: 185 QRS: -11 QRSD: 110 T: 22 QT: 457 QTc: 482 Interpretive Statements SINUS RHYTHM LOW QRS VOLTAGE IN PRECORDIAL LEADS [QRS DEFLECTION < 1.0 mV IN CHEST LEADS] ANTERIOR MYOCARDIAL INFARCTION , PROBABLY OLD [40+ ms Q WAVE AND/OR ST/T ABNORMALITY IN V3/V4] INFERIOR MYOCARDIAL INFARCTION , PROBABLY OLD [40+ ms Q WAVE AND/OR ST/T ABNORMALITY IN II/aVF] Compared to ECG 06/25/2025 10:23:23 No significant changes Electronically Signed On 06-25-2025 13:35:09 CDT by Neil Hammond M.D. [email or web address]
[2025-06-25 12:13] LABS: Troponin 5 2HR 32.25 ng/L (0-10); Troponin 5 2HR Delta 2.25 ABS# (0-10)
[2025-06-25 12:33] LABS: Glucose Urine UA Negative (Normal); Nitrate Urine Negative (Negative); Specific Gravity, Urine 1.011 (1.005-1.030)
[2025-06-25 12:38] LABS: Add Urine Microscopic? YES
== END 2025-06-25 13:15 | disposition home or self-care (01) ==
PROVIDERS: Emergency Provider Physician Assistant; PCP Family Medicine
DX: R51.9 Headache, unspecified (principal); I10 Essential (primary) hypertension; E78.5 Hyperlipidemia, unspecified
CPT/HCPCS: 36415; 70450; 71045; 80053; 81001; 84484; 85025; 93005; 96374; 96375; 96376; 99285; J0360; J3490; J9999